=== PATIENT | male | born 1955 | race Caucasian/White ===

== ENCOUNTER → 2017-04-18 | Outpatient (CLI) | payer OTHER ==
[~2017-04-18] MED LIST: CIAL5TAB PO; DOXA1TAB35 PO; IBUP200C PO; IOHEXOL 350 MG/ML 10 ML VIAL (for RAD DIAG) IVCONTRAST ONE
--- NOTE | 2017-04-18 11:34 | RADRPT ---
EXAM DATE/TIME: 04/18/2017 10:04 [facility] COMPARISON: No previous studies available for comparison. INDICATIONS : Prostate cancer IV CONTRAST: 88 cc Omnipaque 350 (iohexol) IV ORAL CONTRAST: Prescribed oral contrast ingested. RADIATION DOSE: 5.98 CTDIvol (mGy) MEDICAL HISTORY : None SURGICAL HISTORY : None. ENCOUNTER: Initial ACUITY: 1 day PAIN SCALE: 0/10 LOCATION: abdomen TECHNIQUE: Volumetric scanning of the abdomen and pelvis was performed. Using automated exposure control and ad justment of the mA and/or kV according to patient size, radiation dose was kept as low as reasonably achievable to obtain optimal diagnostic quality images. DICOM format image data is available electro nically for review and comparison. FINDINGS: LOWER LUNGS: Advanced emphysematous changes identified throughout both lung bases. A 9 mm nodule with faint centra l calcification is identified in the right middle lobe. A 6 mm noncalcified nodule is identified ante riorly in the right middle lobe. Calcified granulomas identified posteriorly in the inferior aspect o f the right upper lobe. LIVER: Homogeneous density without lesion. There is no dilation of the biliary tree. No calcified gallston es. SPLEEN: Normal size without lesion. PANCREAS: Within normal limits. KIDNEYS: Normal in size and shape. There is no mass, stone or hydronephrosis. ADRENAL GLANDS: Within normal limits. VASCULAR: There is no aortic aneurysm. BOWEL/MESENTERY: The stomach, small bowel, and colon demonstrate no acute abnormality. There is no free intraperitone al air or fluid. ABDOMINAL WALL: Within normal limits. RETROPERITONEUM: There is no lymphadenopathy. BLADDER: No wall thickening or mass. REPRODUCTIVE: The prostate is enlarged. Significant BPH is noted. There is no evidence of periprostatic mass or loc al regional lymphadenopathy. INGUINAL: There is no lymphadenopathy or hernia. MUSCULOSKELETAL: Within normal limits for patient age. CONCLUSION: 1. Calcified and noncalcified right lung pulmonary nodules. Ses most characteristic of granulomatous disease. 2. COPD with extensive emphysema. 3. No evidence of periprostatic spread, local regional lymphadenopathy or osseous metastases in this patient with known prostate carcinoma. Corona Nevarez MD on April 18, 2017 at 11:26 Board Certified Radiologist. This report was verified electronically.
--- NOTE | 2017-04-18 13:54 | RADRPT ---
EXAM DATE/TIME: 04/18/2017 12:26 [facility] COMPARISON: CT ABDOMEN & PELVIS W CONTRAST, April 18, 2017, 10:04. PRIOR BONE SCANS: No correlative bone scan available for comparison. INDICATIONS : Prostate cancer. DOSE: 30.1 mCi Tc99m MDP IV MEDICAL HISTORY : Carcinoma, prostate. SURGICAL HISTORY : None. ENCOUNTER: Initial ACUITY: 3 months PAIN SCALE: 0/10 LOCATION: Abdomen. TECHNIQUE: Three hours post intravenous administration of radiotracer, whole body bone scan imaging was performe d. FINDINGS: Blood pool images demonstrate a homogeneous pattern of uptake in the soft tissues. No hyperemic area s are identified. Focal uptake left side S1 normal CT. This could be metastatic bone disease. This could be confirmed by MRI of the pelvis. CONCLUSION: Possible metastatic disease as described above. Rusty Wilks MD FACR on April 18, 2017 at 13:50 Board Certified Radiologist. This report was verified electronically.
== END ==
LOC: HRAD 08:02
PROVIDERS: ATTEND Urology
DX: C61 Malignant neoplasm of prostate (principal)
CPT/HCPCS: 74177; 78306; A9503; Q9967

== ENCOUNTER 2017-06-20 05:58 | Inpatient (IN) | payer OTHER ==
[~2017-06-20] VITALS: Ht 170.2 cm; Wt 72.8 kg
[2017-06-20] VITALS (10 sets, daily range): BP systolic 101–138; BP diastolic 67–82; PULSE 79–87; RESP 19–27; TEMP 98.2–98.5; O2SAT 100
[~2017-06-20 05:58] MED LIST changes: -IOHEXOL 350 MG/ML 10 ML VIAL (for RAD DIAG) IVCONTRAST ONE
[2017-06-20] MEDS ORDERED: CHLORHEXIDINE GLUCONATE 2 % 1 PACK (2 CLOTHS) TOPICAL PRN (06:30)
[2017-06-20] MEDS ORDERED: LACTATED RINGER'S 1000 ML IV PRN (06:30)
[2017-06-20] MEDS ORDERED: POVIDONE IODINE 5% (ANTISEPSIS KIT) 4 APPLICATIONS EACH NARE PRN (06:30)
[2017-06-20] MEDS ORDERED: METOPROLOL TARTRATE 25 MG TAB PO PRN (06:30)
[2017-06-20] MEDS ORDERED: SODIUM CHLORID 0.9% 500 ML IV PRN (06:30)
[2017-06-20] MEDS ORDERED: BUPIVACAINE HCL PF 0.5% 30 ML VIAL ONE ×3 (06:57)
[2017-06-20] MEDS ORDERED: ceFAZolin INJ 1,000 MG VIAL ONE (06:58)
[2017-06-20] MEDS: ceFAZolin 1,000 MG/NS 100 ML IV SCH ×4 (08:44→10:03)
[2017-06-20] MEDS ORDERED: SODIUM BICARBONATE 8.4% INJ 50 MEQ/50 ML SYR ONE (11:35)
[2017-06-20] MEDS ORDERED: PHENYLEPH/NS 1000 MCG/10 ML SYR ONE (11:39)
[2017-06-20] MEDS ORDERED: PHENYLEPHRINE 40 MG in D5W 500 ML IV PRN (11:45)
[2017-06-20 11:50] LABS: HEMATOCRIT 26.7 % (39.0-51.0); HEMOGLOBIN 9.3 GM/DL (13.0-17.0)
[2017-06-20] MEDS ORDERED: VASOPRESSIN 20 UNITS/ML VIAL ONE (11:52)
[2017-06-20] MEDS ORDERED: PHENYLEPHRINE HCL 10 MG/ML VIAL IV ONE (12:00)
[2017-06-20] MEDS ORDERED: PROPOFOL 200 MG/20 ML AMP IV ONE (12:00)
[2017-06-20] MEDS ORDERED: ROCURONIUM INJ 50 MG/5 ML SYRINGE IV PUSH ONE (12:00)
[2017-06-20] MEDS ORDERED: PHENYLEPH/NS 1000 MCG/10 ML SYR IV ONE (12:00)
[2017-06-20] MEDS ORDERED: ePHEDrine/NS 25 MG/5 ML SYRINGE IV ONE (12:00)
[2017-06-20] MEDS ORDERED: LIDOCAINE HCL 1% PF 5 ML SYRINGE OTHER ONE (12:00)
[2017-06-20] MEDS ORDERED: ceFAZolin INJ 1,000 MG VIAL IV ONE (12:00)
[2017-06-20 12:45] LABS: BICARBONATE 23.7 MEQ/L (21.0-32.0); CALCIUM 6.7 MG/DL (8.5-10.1); CREATININE 0.72 MG/DL (0.60-1.30)
[2017-06-20] MEDS ORDERED: PHENYLEPHRINE HCL 10 MG/ML VIAL ONE (12:49)
[2017-06-20 13:06] LABS: CALCIUM-PROTEIN CORRECTED 9.2 MG/DL (8.5-10.1); TOTAL PROTEIN 2.9 GM/DL (6.4-8.2)
[2017-06-20 13:16] LABS: AUTOMATED NEUTROPHIL # 17.3 TH/MM3 (1.8-7.7); BASOPHIL % 0.2 % (0.0-2.0); EOSINOPHIL % 0.2 % (0.0-4.0); HEMATOCRIT 24.8 % (39.0-51.0); HEMOGLOBIN 8.3 GM/DL (13.0-17.0); LYMPH % 5.6 % (9.0-44.0); LYMPHOCYTE # 1.1 TH/MM3 (1.0-4.8); MEAN CORPUSCULAR HEMOGLOBIN 30.6 PG (27.0-34.0); MEAN CORPUSCULAR HGB CONC 33.7 % (32.0-36.0); MEAN PLATELET VOLUME 7.7 FL (7.0-11.0); MONO % 9.1 % (0.0-8.0); MONOCYTE # 1.8 TH/MM3 (0-0.9); NEUT % 84.9 % (16.0-70.0); PLATELET COUNT 130 TH/MM3 (150-450); RED BLOOD COUNT 2.72 MIL/MM3 (4.50-5.90); RED CELL DISTRIBUTION WIDTH 14.7 % (11.6-17.2); WHITE BLOOD COUNT 20.3 TH/MM3 (4.0-11.0)
[2017-06-20 13:26] LABS: INTERNATIONAL NORMALIZED RATIO 1.4 RATIO; PROTHROMBIN TIME - PATIENT 14.5 SEC (9.8-11.6)
--- NOTE | 2017-06-20 14:06 | PD.OP ---
Operative Report Date of Surgery: Jun 20, 2017 Preoperative Diagnosis: [place] 7 prostate cancer Postoperative Diagnosis: Same Procedure: Radical retropubic prostatectomy with bilateral pelvic lymph node dissection Anesthesia: JOCELIN Surgeon: Mina Calvillo Plant Machinist(s): Dr. Rubio Guillaume Resident Surgeon: None Operation and Findings: 62-year-old male presented with findings of [place] 7 prostate cancer. Patient elected to undergo radical retropubic prostatectomy with bilateral pelvic lymph node dissection. Risk and benefits discussed preoperatively and the patient was willing to proceed. Preoperatively was noted the patient only obtain soft erections. Patient was brought to operative identified by myself as Rusty Mai. Placed on the operating room table in the supine position, he was prepped draped in usual sterile fashion, received preprocedure bites of general endotracheal tube anesthesia was administered. SCDs were placed as well as all appropriate padding. A 16 Swedish Banerjee was placed at the beginning of the procedure. 15 blade was used to make the opening incision extending from the umbilicus to the area just above the pubic symphysis. Camper's and Romeo's fascia were then entered. The bladder was identified. The Bookwalter retractor was placed into position. The pelvic lymph node dissection was performed first. The left obturator node packet was identified and using Metzenbaum scissors with multiple clips the lymph node packet was dissected out. The obturator nerve was identified as well as the external iliac vessels. The node dissection was then performed on the right side without difficulty. Both specimens were then sent to pathology for frozen section were found to be negative for disease. The prostatectomy was then performed. The dorsal vein complex was identified and using a 2-0 Vicryl suture the complex was ligated. The dorsal vein complex was then cut using the Bovie cautery. The puboprostatics were then cut using the Metzenbaum scissors on both sides. Using the bladder blade retractor, the bladder was retracted cephalad allowing for more retraction upward on the prostate gland. The Metzenbaum scissors was then used to cut the anterior urethra. Umbilical tape was used to placed under the inferior aspect of the urethra using a right angle clamp. The Banerjee was then cut and brought up from the urethra allowing for cephalad retraction on the prostate. Attention then was directed to the pedicles on both sides. Using a right angle clamp the pedicles were dissected out and suture ligated with 2-0 Vicryl sutures. This was done on both sides of the prostate gland. Once completed then dissection then was performed of the seminal vesicles and vas deferens. Once these structures were then freed from their surrounding attachments, the vas deference was ligated with clips. Bladder neck dissection was then performed using the Metzenbaum scissors at the pubovesical junction. This was performed circumferentially. Care was taken to avoid both ureters. At this time, the bladder neck was from the prostate. Reconstruction of the bladder neck was then performed with tennis racquet suturing as well as white earth formation of the bladder neck. This was done with 4-0 Vicryl suture in interrupted fashion. 4 2-0 Vicryl sutures on a needle were then utilized to place 4 stitches in the area of the bladder neck. A 20 Swedish Banerjee catheter was then inserted into the bladder with 15 cc in the balloon. The sutures were then tightened allowing the bladder to reanastomosed to the bladder neck. Prior to this, a ANA MARIA drain was placed at the area of the bladder neck. Once the anastomosis was completed a #1 loop PDS was used to close the wound. Alfonso were then used to close the skin. The patient tolerated the procedure well and was transferred to the recovery room in stable condition. Mina Calvillo DO Jun 20, 2017 14:06
[2017-06-20] MEDS ORDERED: ACETAMINOPHEN 650 MG/20.3 ML UDC PO PRN (14:15)
[2017-06-20] MEDS ORDERED: diphenhydrAMINE HCL 50 MG/ML VIAL IM PRN (14:15)
[2017-06-20] MEDS ORDERED: ONDANSETRON HCL 4 MG/2 ML VIAL IV PUSH PRN (14:15)
[2017-06-20] MEDS ORDERED: HYDROmorphone HCL PF 1 MG/ML VIAL IV PUSH PRN (14:15)
--- NOTE | 2017-06-20 14:30 | EKG ---
Date Performed: 06/20/2017 Time Performed: 06:48:21 PTAGE: 62 years EKG: Sinus rhythm SEPTAL MYOCARDIAL INFARCTION , PROBABLY OLD ABNORMAL ECG NO PREVIOUS TRACING DOCTOR: Tatum Hilario Interpretating Date/Time 06/20/2017 14:29:06
[2017-06-20] MEDS ORDERED: PROPOFOL 1000 MG/100 ML INJ 100 ML ONE (14:34)
[2017-06-20] MEDS ORDERED: fentaNYL DRIP 250 ML ONE (14:34)
[2017-06-20] MEDS ORDERED: LACTATED RINGER'S 1000 ML INJ 1,000 ML IV SCH (15:00)
[2017-06-20 15:07] LABS: MEAN CELL VOLUME 90.2 FL (80.0-100.0); MEAN CORPUSCULAR HEMOGLOBIN 31.9 PG (27.0-34.0); MEAN CORPUSCULAR HGB CONC 35.4 % (32.0-36.0); PLATELET COUNT 136 TH/MM3 (150-450); RED BLOOD COUNT 3.44 MIL/MM3 (4.50-5.90); RED CELL DISTRIBUTION WIDTH 14.2 % (11.6-17.2); WHITE BLOOD COUNT 22.8 TH/MM3 (4.0-11.0)
[2017-06-20 15:26] LABS: BICARBONATE 24.7 MEQ/L (21.0-32.0); CALCIUM 6.3 MG/DL (8.5-10.1); CREATININE 0.88 MG/DL (0.60-1.30)
[2017-06-20 15:44] LABS: CALCIUM-PROTEIN CORRECTED 8.2 MG/DL (8.5-10.1); TOTAL PROTEIN 3.5 GM/DL (6.4-8.2)
[2017-06-20] MEDS ORDERED: fentaNYL 2,500 MCG/NS 250 ML IV PRN (15:45)
[2017-06-20] MEDS ORDERED: PROPOFOL 1000 MG/100 ML IV PRN (15:45)
[2017-06-20] MEDS ORDERED: DO NOT ADM ANY ANTICOAGULANT DRUGS PRN (16:00)
[2017-06-20] MEDS ORDERED: TERBUTALINE INJ 1 MG/ML AMP SQ PRN (16:15)
[2017-06-20] MEDS: PHENYLEPHRINE 40 MG in D5W 500 ML IV PRN ×3 (16:48→21:26)
--- NOTE | 2017-06-20 17:01 | PD.CONS ---
[facility] Service Critical Care Medicine Consult Requested By Dr. Calvillo Reason for Consult Significant blood loss intraoperatively for radical prostatectomy Anemia requiring transfusion Hypotension/hemorrhagic shock Postoperative acute respiratory failure Hypofibrinogenemia Hypocalcemia Primary Care Physician Herve Koenig DO History of Present Illness 62-year-old male with [place] 7 prostate cancer underwent radical retropubic prostatectomy with bilateral pelvic lymph node dissection by Dr. Calvillo today. Patient had a approximately 4-5 L EBL, received 5 units PRBC 1 unit of platelets and 1 unit of FFP intraoperatively. Also received 8L crystalloid boluses. Was on Kamaljit-Synephrine temporally which was weaned off. Patient was moved to the ICU where I evaluated him. RN had to restart Kamaljit-Synephrine due to hypotension, currently at 200 mcg/min. Stat CBC CMP coags and fibrinogen are pending at this time. Previous fibrinogen was 107 and I have ordered cryoprecipitate. Will transfuse to keep Hb >8.0 Also 2 g of calcium chloride ordered. I have ordered additional 1L NS bolus and change maintenance IV fluid to 150 mL/h normal saline. Discussed with Dr. Calvillo Review of Systems ROS Limitations: Intubated Past Family Social History Allergies: Coded Allergies: No Known Allergies (Unverified Adverse Reaction, Unknown, 06/20/17) Past Medical History Recently diagnosed [place] 7 prostate cancer Nephrolithiasis Erectile dysfunction Past Surgical History Dental surgery Reported Medications Doxazosin 2 mg daily Ibuprofen PRN Active Ordered Medications Reviewed Family History Mother had Parkinson's disease Social History Occasional alcohol use Physical Exam Vital Signs Vital Signs Date Time Temp Pulse Resp B/P (MAP) Pulse Ox O2 Delivery O2 Flow Rate FiO2 06/20/17 16:48 74 70/51 06/20/17 16:14 40 06/20/17 16:11 73 15 96/55 (69) 99 Mechanical Ventilator 40 06/20/17 16:00 74 13 90/52 (65) 99 Mechanical Ventilator 40 06/20/17 15:45 73 15 87/56 (66) 98 Mechanical Ventilator 40 06/20/17 15:30 73 15 86/52 (63) 100 Mechanical Ventilator 40 06/20/17 15:15 83 19 130/74 (92) 100 Mechanical Ventilator 40 06/20/17 15:00 85 20 94/57 (69) 98 Mechanical Ventilator 40 06/20/17 14:45 98 21 117/68 (84) 94 Mechanical Ventilator 40 06/20/17 14:41 88 19 100/58 (72) 93 Mechanical Ventilator 40 06/20/17 14:30 100 40 18 14:27 97.3 94 17 134/81 (98) 98 Mechanical Ventilator 40 06/20/17 14:27 40 06/20/17 06:57 98.6 82 18 127/83 (98) 93 Physical Exam GENERAL: Well-nourished, well-developed patient who is intubated sedated. Hypotensive on Kamaljit-Synephrine SKIN: Warm and dry well perfused HEAD: Atraumatic. Normocephalic. EYES: Pupils equal and round reactive bilaterally. No scleral icterus. No injection or drainage. ENT: No nasal bleeding or discharge. Mucous membranes pink and moist. Orotracheally intubated NECK: Trachea midline. No JVD. CARDIOVASCULAR: Regular rate and rhythm, sinus rhythm on the monitor. No murmurs rubs or gallops appreciated. Currently hypotensive on 200 mcg/min of Kamaljit-Synephrine RESPIRATORY: Air entry equal bilaterally no wheezes or crackles GASTROINTESTINAL: Abdomen soft, distended. Inferior midline incision dressing intact MUSCULOSKELETAL: Extremities without clubbing, cyanosis, or edema. No obvious deformities. : Banerjee with slightly pink urine output NEUROLOGICAL: Patient is intubated sedated but wakes up easily follows commands. No focal deficits Laboratory Laboratory Tests Test 06/20/17 11:27 06/20/17 11:38 06/20/17 12:05 06/20/17 12:59 Hemoglobin 9.3 8.3 Hematocrit 26.7 24.8 Blood Gas Puncture Site ART LINE Blood Gas Patient Temperature 98.6 Blood Gas HCO3 20 Blood Gas Base Excess -5.2 Blood Gas Oxygen Saturation 97 Arterial Blood pH 7.33 Arterial Blood Partial Pressure CO2 39 Arterial Blood Partial Pressure O2 189 Arterial Blood Oxygen Content 12.2 Arterial Blood Carboxyhemoglobin 0.9 Arterial Blood Methemoglobin 1.0 Blood Gas Hemoglobin 8.6 Oxygen Delivery Device VENTILATOR Blood Gas Inspired Oxygen 56 Blood Urea Nitrogen 12 Creatinine 0.72 Random Glucose 180 Total Protein 2.9 Calcium Level 6.7 Sodium Level 142 Potassium Level 4.2 Chloride Level 107 Carbon Dioxide Level 23.7 Anion Gap 11 Estimat Glomerular Filtration Rate 110 Protein Corrected Calcium 9.2 White Blood Count 20.3 Red Blood Count 2.72 Mean Corpuscular Volume 91.0 Mean Corpuscular Hemoglobin 30.6 Mean Corpuscular Hemoglobin Concent 33.7 Red Cell Distribution Width 14.7 Platelet Count 130 Mean Platelet Volume 7.7 Neutrophils (%) (Auto) 84.9 Lymphocytes (%) (Auto) 5.6 Monocytes (%) (Auto) 9.1 Eosinophils (%) (Auto) 0.2 Basophils (%) (Auto) 0.2 Neutrophils # (Auto) 17.3 Lymphocytes # (Auto) 1.1 Monocytes # (Auto) 1.8 Eosinophils # (Auto) 0.0 Basophils # (Auto) 0.0 CBC Comment DIFF FINAL Differential Comment Prothrombin Time 14.5 Prothromb Time International Ratio 1.4 Activated Partial Thromboplast Time 32.6 Fibrinogen 107 Test 06/20/17 14:48 06/20/17 15:10 White Blood Count 22.8 Red Blood Count 3.44 Hemoglobin 11.0 Hematocrit 31.0 Mean Corpuscular Volume 90.2 Mean Corpuscular Hemoglobin 31.9 Mean Corpuscular Hemoglobin Concent 35.4 Red Cell Distribution Width 14.2 Platelet Count 136 Mean Platelet Volume 8.0 Blood Urea Nitrogen 11 Creatinine 0.88 Random Glucose 231 Total Protein 3.5 Calcium Level 6.3 Sodium Level 142 Potassium Level 4.0 Chloride Level 107 Carbon Dioxide Level 24.7 Anion Gap 10 Estimat Glomerular Filtration Rate 87 Protein Corrected Calcium 8.2 Blood Gas Puncture Site ART LINE Blood Gas Patient Temperature 98.6 Blood Gas HCO3 20 Blood Gas Base Excess -5.6 Blood Gas Oxygen Saturation 95 Arterial Blood pH 7.30 Arterial Blood Partial Pressure CO2 42 Arterial Blood Partial Pressure O2 110 Arterial Blood Oxygen Content 13.4 Arterial Blood Carboxyhemoglobin 1.3 Arterial Blood Methemoglobin 1.5 Blood Gas Hemoglobin 9.9 Oxygen Delivery Device VENTILATOR Blood Gas Ventilator Setting AC/16/500/PEEP5 Blood Gas Inspired Oxygen 40 Result Diagram: 06/20/17 1448 06/20/17 1448 Assessment and Plan Assessment and Plan ASSESSMENT: Anemia requiring transfusion Hypotension/hemorrhagic shock Significant blood loss intraoperatively for radical prostatectomy Postoperative acute respiratory failure Hypofibrinogenemia Hypocalcemia [place] 7 prostate cancer PLAN: NEURO: -Propofol and fentanyl for sedation and ventilator synchrony -As needed morphine, for pain RESP: -ACV, ventilator bundle -Leave endotracheally intubated until hemodynamically stable -Start weaning trials hopefully in 24 hours CV/HEME: -Received 5 units PRBC, 1 unit of platelets, 1 unit of FFP in the OR -Received 8 L of crystalloid boluses -Give additional 1 L normal saline bolus -Transfuse PRBC to keep hemoglobin more than 8 -Transfuse 4 units of cryoprecipitate -Normal saline IV fluids 150 ml per hour -Kamaljit-Synephrine at 200 mcg/min -Leukocytosis is most likely stress related GI: -Keep n.p.o., IV famotidine : -Status post radical prostatectomy, postoperative management per Dr. Calvillo -Maintain Banerjee catheter ID: -Leukocytosis is most likely stress related -Perioperative antibiotics per Dr. Calvillo -Monitor closely for infection ENDO: -Electrolyte replacement per protocol -Sliding scale insulin -Replace 2 g of calcium PROPH: -Bilateral lower extremity SCDs/MAAME. Avoid chemical DVT prophylaxis. IV famotidine 20 mg every 12 LINES: -Utilize peripheral IVs, central line if needed CC time 42 min Code Status Full Discussed Condition With Dr. Calvillo and bedside RN Rina Ivy MD Jun 20, 2017 17:01
[2017-06-20] MEDS ORDERED: CALCIUM CHLORIDE INJ 2 GM in DEXTROSE 5% IN WATER 100ML INJ 100 ML IV ONE ×2 (17:15)
[2017-06-20 17:38] LABS: AUTOMATED NEUTROPHIL # 18.3 TH/MM3 (1.8-7.7); BASOPHIL % 0.1 % (0.0-2.0); HEMOGLOBIN 9.5 GM/DL (13.0-17.0); LYMPH % 5.1 % (9.0-44.0); LYMPHOCYTE # 1.1 TH/MM3 (1.0-4.8); MEAN CELL VOLUME 92.8 FL (80.0-100.0); MEAN CORPUSCULAR HEMOGLOBIN 32.6 PG (27.0-34.0); MEAN CORPUSCULAR HGB CONC 35.1 % (32.0-36.0); MEAN PLATELET VOLUME 8.2 FL (7.0-11.0); MONO % 11.3 % (0.0-8.0); MONOCYTE # 2.5 TH/MM3 (0-0.9); NEUT % 83.5 % (16.0-70.0); PLATELET COUNT 126 TH/MM3 (150-450); RED BLOOD COUNT 2.91 MIL/MM3 (4.50-5.90); WHITE BLOOD COUNT 21.9 TH/MM3 (4.0-11.0)
[2017-06-20] MEDS ORDERED: SODIUM BICARBONATE 8.4% INJ 50 MEQ/50 ML SYR IV PUSH ONE (17:45)
[2017-06-20] MEDS ORDERED: PROPOFOL 1000 MG/100 ML INJ 100 ML IV PRN (17:45)
--- NOTE | 2017-06-20 17:53 | RADRPT ---
EXAM DATE/TIME: 06/20/2017 17:29 [facility] COMPARISON: No previous studies available for comparison. INDICATIONS : Respiratory disease. MEDICAL HISTORY : None. SURGICAL HISTORY : None. ENCOUNTER: Subsequent ACUITY: 1 week PAIN SCORE: 0/10 LOCATION: Bilateral chest FINDINGS: There is an endotracheal tube in place which appears to be in good position. There is no evidence of pneumothorax. There is a plate like infiltrate in the right lung base. There is some scattered infilt rates in the left lung base. No definite pleural effusions. Heart size is within normal limits. The b kalee structures are grossly intact. CONCLUSION: 1. There appears to be an ET tube in place in good position. 2. No pneumothorax. 3. Bibasilar infiltrates. Elia Mejia MD on June 20, 2017 at 17:50 Board Certified Radiologist. This report was verified electronically.
[2017-06-20 17:57] LABS: INTERNATIONAL NORMALIZED RATIO 1.2 RATIO
[2017-06-20] MEDS: SODIUM CHLOR 0.9% 1000 ML INJ 1,000 ML IV SCH (18:03)
[2017-06-20] MEDS: FAMOTIDINE 20 MG/2 ML VIAL IV PUSH SCH (18:03)
[2017-06-20] MEDS ORDERED: DEXTROSE 50% IN WATER 50 ML VIAL(D50) IV PUSH PRN (18:15)
[2017-06-20] MEDS ORDERED: GLUCAGON 1 MG/ML VIAL OTHER PRN (18:15)
[2017-06-20 18:22] LABS: ALBUMIN 1.5 GM/DL (3.4-5.0); BICARBONATE 19.2 MEQ/L (21.0-32.0); CALCIUM 6.1 MG/DL (8.5-10.1); CALCIUM-PROTEIN CORRECTED 8.1 MG/DL (8.5-10.1); CREATININE 1.06 MG/DL (0.60-1.30); TOTAL BILIRUBIN ADULT 0.7 MG/DL (0.2-1.0); TOTAL PROTEIN 3.2 GM/DL (6.4-8.2)
[2017-06-20 18:28] LABS: TOXIC GRANULATION 1+ (NORMAL)
[2017-06-20] MEDS: CHLORHEXIDINE 0.12% (ORAL KIT) 15 ML CUP MT SCH (20:33)
[2017-06-20] MEDS: INSULIN ASPART SUPPLEMENTAL SCALE SQ SCH (21:26)
[2017-06-20 22:37] LABS: HEMOGLOBIN A1C 5.3 % (4.3-6.0)
[2017-06-21] VITALS (13 sets, daily range): BP systolic 106–161; BP diastolic 62–88; PULSE 80–110; RESP 12–22; TEMP 98.4–99.6; O2SAT 91–100
[2017-06-21] MEDS: INSULIN ASPART SUPPLEMENTAL SCALE SQ SCH ×6 (01:02→20:00)
[2017-06-21] MEDS: SODIUM CHLOR 0.9% 1000 ML INJ 1,000 ML IV SCH ×3 (01:02→13:01)
[2017-06-21 02:43] LABS: HEMOGLOBIN 10.3 GM/DL (13.0-17.0); MEAN CELL VOLUME 97.9 FL (80.0-100.0); MEAN CORPUSCULAR HEMOGLOBIN 33.7 PG (27.0-34.0); MEAN CORPUSCULAR HGB CONC 34.4 % (32.0-36.0); MEAN PLATELET VOLUME 8.7 FL (7.0-11.0); PLATELET COUNT 132 TH/MM3 (150-450); RED BLOOD COUNT 3.06 MIL/MM3 (4.50-5.90); RED CELL DISTRIBUTION WIDTH 14.5 % (11.6-17.2); WHITE BLOOD COUNT 20.3 TH/MM3 (4.0-11.0)
[2017-06-21 02:50] LABS: BICARBONATE 20.4 MEQ/L (21.0-32.0); CALCIUM 7.5 MG/DL (8.5-10.1); CREATININE 1.24 MG/DL (0.60-1.30)
[2017-06-21] MEDS: FAMOTIDINE 20 MG/2 ML VIAL IV PUSH SCH ×2 (06:25→17:13)
[2017-06-21] MEDS: PHENYLEPHRINE 40 MG in D5W 500 ML IV PRN (06:26)
--- NOTE | 2017-06-21 06:46 | HHI.CCPN ---
Subjective Remarks/Hospital Course 62-year-old male with [place] 7 prostate cancer underwent radical retropubic prostatectomy with bilateral pelvic lymph node dissection by Dr. Calvillo today. Patient had a approximately 4-5 L EBL, received 5 units PRBC 1 unit of platelets and 1 unit of FFP intraoperatively. Also received 8L crystalloid boluses. Was on Kamaljit-Synephrine temporally which was weaned off. Patient was moved to the ICU where I evaluated him. RN had to restart Kamaljit-Synephrine due to hypotension, currently at 200 mcg/min. Stat CBC CMP coags and fibrinogen are pending at this time. Previous fibrinogen was 107 and I have ordered cryoprecipitate. Will transfuse to keep Hb >8.0 Also 2 g of calcium chloride ordered. I have ordered additional 1L NS bolus and change maintenance IV fluid to 150 mL/h normal saline. Discussed with Dr. Calvillo 06/21: Awake alert on the vent. Urine output approximately 450 mL last 12 hours. Patient wakes up easily follows commands. Remains on Kamaljit-Synephrine at 90 mcg /min. hemoglobin remained stable on am labs Objective Vital Signs Date Time Temp Pulse Resp B/P (MAP) Pulse Ox O2 Delivery O2 Flow Rate FiO2 06/21/17 06:26 88 112/69 06/21/17 04:42 100 40 06/21/17 04:00 99.3 16 06/20/17 19:00 Mechanical Ventilator Intake and Output 06/21/17 06/21/17 06/22/17 08:00 16:00 00:00 Intake Total 1600 ml Output Total 830 ml Balance 770 ml Result Diagram: 06/21/17 0125 06/21/17 0125 Other Results Laboratory Tests Test 06/20/17 11:38 06/20/17 15:10 06/20/17 17:16 Blood Gas Puncture Site ART LINE ART LINE ART LINE Blood Gas Patient Temperature 98.6 98.6 98.6 Blood Gas HCO3 20 mmol/L (22-26) 20 mmol/L (22-26) 18 mmol/L (22-26) Blood Gas Base Excess -5.2 mmol/L (-2-2) -5.6 mmol/L (-2-2) -7.1 mmol/L (-2-2) Blood Gas Oxygen Saturation 97 % (90-100) 95 % (90-100) 95 % (90-100) Arterial Blood pH 7.33 (7.380-7.420) 7.30 (7.380-7.420) 7.31 (7.380-7.420) Arterial Blood Partial Pressure CO2 39 mmHg (38-42) 42 mmHg (38-42) 37 mmHg (38-42) Arterial Blood Partial Pressure O2 189 mmHg (61-120) 110 mmHg (61-120) 97 mmHg (61-120) Arterial Blood Oxygen Content 12.2 Vol % (12.0-20.0) 13.4 Vol % (12.0-20.0) 14.1 Vol % (12.0-20.0) Arterial Blood Carboxyhemoglobin 0.9 % (0-4) 1.3 % (0-4) 1.8 % (0-4) Arterial Blood Methemoglobin 1.0 % (0-2) 1.5 % (0-2) 1.0 % (0-2) Blood Gas Hemoglobin 8.6 G/DL (12.0-16.0) 9.9 G/DL (12.0-16.0) 10.5 G/DL (12.0-16.0) Oxygen Delivery Device VENTILATOR VENTILATOR VENTILATOR Blood Gas Inspired Oxygen 56 % 40 % 40 % Blood Gas Ventilator Setting AC/16/500/PEEP5 16/500/PEEP5 Objective Remarks GENERAL: Well-nourished, well-developed patient who is intubated. Hypotensive on Kamaljit-Synephrine SKIN: Warm and dry well perfused HEAD: Atraumatic. Normocephalic. EYES: Pupils equal and round reactive bilaterally. No scleral icterus. No injection or drainage. ENT: No nasal bleeding or discharge. Mucous membranes pink and moist. Orotracheally intubated NECK: Trachea midline. No JVD. CARDIOVASCULAR: Regular rate and rhythm, sinus rhythm on the monitor. No murmurs rubs or gallops appreciated. On 90 mcg/min of Kamaljit-Synephrine RESPIRATORY: Air entry equal bilaterally no wheezes or crackles GASTROINTESTINAL: Abdomen soft, distended. Inferior midline incision dressing intact. ANA MARIA drain with serosanguineous output MUSCULOSKELETAL: Extremities without clubbing, cyanosis, or edema. No obvious deformities. : Banerjee with slightly pink urine output NEUROLOGICAL: Patient is intubated sedated but wakes up easily follows commands. No focal deficits A/P Assessment and Plan ASSESSMENT: Anemia requiring transfusion Hypotension improving Significant blood loss intraoperatively for radical prostatectomy Postoperative acute respiratory failure Hypofibrinogenemia Hypocalcemia [place] 7 prostate cancer PLAN: NEURO: -Propofol and fentanyl for sedation and ventilator synchrony -Hold sedation for SBT -As needed morphine, for pain RESP: -ACV, ventilator bundle -SBT with probable extubation CV/HEME: -Received 5 units PRBC, 1 unit of platelets, 1 unit of FFP in the OR. -s/p 4 units of cryoprecipitate -Received 8 L of crystalloid boluses in OR -DC maintenance IV fluids. IV Lasix 20 mg 1 -Transfuse PRBC to keep hemoglobin more than 8 -Normal saline IV fluids 150 ml per hour-DC today -Kamaljit-Synephrine at 90 mcg/min to keep MAP>65 -Leukocytosis is most likely stress related GI: -Keep n.p.o., IV famotidine : -Status post radical prostatectomy, postoperative management per Dr. Calvillo -Maintain Banerjee catheter ID: -Leukocytosis is most likely stress related -Perioperative antibiotics per Dr. Calvillo -Monitor closely for infection ENDO: -Electrolyte replacement per protocol -Sliding scale insulin PROPH: -Bilateral lower extremity SCDs/MAAME. Avoid chemical DVT prophylaxis due to significant EBL. IV famotidine 20 mg every 12 LINES: -Utilize peripheral IVs, central line if needed Level 3 Rina Ivy MD Jun 21, 2017 06:46
[2017-06-21] MEDS ORDERED: FUROSEMIDE 20 MG/2 ML VIAL IV PUSH ONE (07:30)
[2017-06-21] MEDS: CHLORHEXIDINE 0.12% (ORAL KIT) 15 ML CUP MT SCH ×2 (08:00→20:00)
--- NOTE | 2017-06-21 09:08 | HHI.PR ---
Subjective Patient symptoms today Pt seen and examined. Extubated. Pain controlled. Weening off malina. Objective Vital Signs Vital Signs Date Time Temp Pulse Resp B/P (MAP) Pulse Ox O2 Delivery O2 Flow Rate FiO2 06/21/17 08:30 93 Venturi Mask 6.00 50 06/21/17 08:30 93 Venturi Mask 6 50 06/21/17 06:26 88 112/69 06/21/17 06:00 85 06/21/17 04:42 100 40 06/21/17 04:00 99.3 87 16 116/71 (86) 96 06/21/17 04:00 80 06/21/17 04:00 40 06/21/17 02:08 100 40 06/21/17 02:00 86 06/21/17 00:00 98.8 82 16 106/71 (83) 98 06/21/17 00:00 40 06/21/17 00:00 80 06/20/17 22:00 79 06/20/17 21:26 80 113/66 06/20/17 20:06 100 35 06/20/17 20:00 84 06/20/17 20:00 40 06/20/17 20:00 98.5 84 19 138/67 (90) 100 06/20/17 19:57 100 40 06/20/17 19:00 100 Mechanical Ventilator 40 06/20/17 18:52 98.3 84 20 101/82 100 06/20/17 18:39 98.3 80 27 125/73 100 06/20/17 18:37 98.2 83 24 111/70 100 06/20/17 18:00 87 06/20/17 17:00 82 87/53 06/20/17 16:48 74 70/51 18 16:30 82 06/20/17 16:14 40 18 16:11 73 15 96/55 (69) 99 Mechanical Ventilator 40 06/20/17 16:00 74 13 90/52 (65) 99 Mechanical Ventilator 40 18 15:45 73 15 87/56 (66) 98 Mechanical Ventilator 40 18 15:30 73 15 86/52 (63) 100 Mechanical Ventilator 40 06/20/17 15:15 83 19 130/74 (92) 100 Mechanical Ventilator 40 06/20/17 15:00 85 20 94/57 (69) 98 Mechanical Ventilator 40 06/20/17 14:45 98 21 117/68 (84) 94 Mechanical Ventilator 40 06/20/17 14:41 88 19 100/58 (72) 93 Mechanical Ventilator 40 06/20/17 14:30 100 40 06/20/17 14:27 97.3 94 17 134/81 (98) 98 Mechanical Ventilator 40 06/20/17 14:27 40 Intake & Output 06/21/17 06/21/17 07:00 19:00 Intake Total 2311 ml Output Total 830 ml Balance 1481 ml Intake IV Total 2100 ml Cryoprecipitate 211 ml Output Urine Total 460 ml Drainage Total 370 ml Result Diagram: 06/21/1712406/21/17124 Objective Remarks CV:RRR Lungs: BS bilateral Abd:soft,incisional tenderness Dressing intact ANA MARIA: serous fluid Ext: neg C/C/E Medications and IVs Current Medications Medications (Trade) Dose Ordered Sig/Aimee Route Start Time Stop Time Status Last Admin Sodium Chloride 500 ml @ 30 mls/hr [id number] PRN IV 06/20/17 06:30 06/23/17 06:29 (Lopressor) 25 mg ASSEMBLY LINE DRIVER PRN PO 06/20/17 06:30 06/23/17 06:29 (Betadine 5% Antisepsis Kit) 1 applic ASSEMBLY LINE DRIVER PRN EACH NARE 06/20/17 06:30 06/23/17 06:29 06/20/17 06:49 (Chlorhexidine 2% Cloth) 3 pack [employer]SEMBLY LINE DRIVER PRN TOPICAL 06/20/17 06:30 06/23/17 06:29 06/20/17 06:30 Cefazolin Sodium 1000 mg/Sodium Chloride 100 ml @ 200 mls/hr ASSEMBLY LINE DRIVER IV 06/20/17 06:30 06/23/17 06:29 06/20/17 08:44 Cefazolin Sodium 1000 mg/Sodium Chloride 100 ml @ 200 mls/hr Q8H IV 06/20/17 18:00 06/21/17 10:29 06/21/17 01:02 (Dilaudid Pf Inj) 1 mg Q4H PRN IV PUSH 06/20/17 14:15 (Zofran Inj) 4 mg Q6HR PRN IV PUSH 06/20/17 14:15 (Tylenol 650 Mg/ 20 ml Liq) 650 mg Q6H PRN PO 06/20/17 14:15 (Benadryl Inj) 25 mg Q6H PRN IM 06/20/17 14:15 (Percocet 7.5-325 Mg) 1 tab Q6H PRN PO 06/20/17 14:15 (Morphine Inj) 2 mg Q4H PRN IM 06/20/17 14:15 Fentanyl Citrate 250 ml @ 5 mls/hr TITRATE PRN IV 06/20/17 15:45 06/20/17 18:00 Miscellaneous Information ALL NURSING DEPARTME... UNSCH PRN .XX 06/20/17 16:00 06/21/17 15:59 Phenylephrine HCl 40 mg/Dextrose 500 ml @ 30 mls/hr TITRATE PRN IV 06/20/17 16:15 06/21/17 06:26 (Brethine Inj) 1 mg UNSCH PRN SQ 06/20/17 16:15 (Pepcid Inj) 20 mg Q12H IV PUSH 06/20/17 18:00 06/21/17 06:25 (NovoLOG SUPPLEMENTAL SCALE) 1 Q4HR SQ 06/20/17 20:00 06/21/17 08:59 Sodium Chloride 1,000 ml @ 150 mls/hr Q6H40M IV 06/20/17 18:00 06/21/17 01:02 (Peridex 0.12% Liq) 15 ml BID@08,20 MT 06/20/17 20:00 06/20/17 20:33 Propofol 100 ml @ 2.124 mls/ hr TITRATE PRN IV 06/20/17 17:45 (D50w (Vial) Inj) 50 ml UNSCH PRN IV PUSH 06/20/17 18:15 (Glucagon Inj) 1 mg UNSCH PRN OTHER 06/20/17 18:15 Assessment and Plan Assessment and Plan 62 y.o male s/p RRP OOB to chair Meghan off pressor today Mina Calvillo DO Jun 21, 2017 09:08
--- NOTE | 2017-06-21 09:46 | PQ ---
Physician Query Response Document PATIENT: JACKIE LEMUS : 1955 ADMIT DATE: 06/20/2017 5:58 AM DISCH DATE: RESPONDING PROVIDER #: [email or web address] QUERY TEXT: Anemia Type Anemia is documented in the Medical Record. Please specify the cause (includes suspected or probable cause) Such as: -- Due to acute blood loss -- Due to chronic blood loss -- Due to iron deficiency -- Due to chronic disease -- Other, please specify The patient's Clinical Indicators include: anemia requiring transfusion Per documentation in progress notes significant blood loss intraoperative Query created by: Yamilka Mathias on 06/21/2017 9:33 AM RESPONSE TEXT: Anemia due to acute blood loss, intraoperatively Electronically signed by: Rina Ivy MD 06/21/2017 9:42 AM
[2017-06-21] MEDS: MORPHINE SULFATE 2 MG/ML INJ IM PRN (10:18)
[2017-06-21] MEDS: oxyCODONE/ACETAMINOPHEN 7.5 MG/325 MG TAB PO PRN (22:34)
[2017-06-22] VITALS (12 sets, daily range): BP systolic 101–128; BP diastolic 55–70; PULSE 90–108; RESP 15–28; TEMP 98.6–99.1; O2SAT 90–100
[2017-06-22] MEDS: MORPHINE SULFATE 2 MG/ML INJ IM PRN (01:57)
[2017-06-22] MEDS: oxyCODONE/ACETAMINOPHEN 7.5 MG/325 MG TAB PO PRN ×3 (03:36→19:34)
[2017-06-22] MEDS: INSULIN ASPART SUPPLEMENTAL SCALE SQ SCH ×6 (04:00→21:00)
[2017-06-22 04:45] LABS: HEMATOCRIT 22.8 % (39.0-51.0); HEMOGLOBIN 8.1 GM/DL (13.0-17.0); MEAN CELL VOLUME 94.6 FL (80.0-100.0); MEAN CORPUSCULAR HEMOGLOBIN 33.7 PG (27.0-34.0); MEAN CORPUSCULAR HGB CONC 35.6 % (32.0-36.0); MEAN PLATELET VOLUME 8.6 FL (7.0-11.0); PLATELET COUNT 112 TH/MM3 (150-450); RED BLOOD COUNT 2.41 MIL/MM3 (4.50-5.90); RED CELL DISTRIBUTION WIDTH 13.9 % (11.6-17.2); WHITE BLOOD COUNT 14.5 TH/MM3 (4.0-11.0)
[2017-06-22 05:12] LABS: BICARBONATE 29.6 MEQ/L (21.0-32.0); CALCIUM 7.5 MG/DL (8.5-10.1); CREATININE 0.84 MG/DL (0.60-1.30)
[2017-06-22] MEDS: FAMOTIDINE 20 MG/2 ML VIAL IV PUSH SCH (06:00)
[2017-06-22] MEDS: CHLORHEXIDINE 0.12% (ORAL KIT) 15 ML CUP MT SCH ×2 (07:41→20:00)
--- NOTE | 2017-06-22 09:55 | HHI.PR ---
Subjective Patient symptoms today Pt seen and examined. Feels well. Incisional pain noted. Objective Vital Signs Vital Signs Date Time Temp Pulse Resp B/P (MAP) Pulse Ox O2 Delivery O2 Flow Rate FiO2 06/22/17 08:16 90 Nasal Cannula 6.00 06/22/17 07:00 94 Nasal Cannula 6.00 06/22/17 06:00 90 06/22/17 04:00 98.7 90 16 106/55 (72) 99 06/22/17 04:00 98 06/22/17 02:00 95 06/22/17 00:23 100 Simple Mask 8.00 06/22/17 00:00 96 06/22/17 00:00 98.9 96 15 101/58 (72) 99 06/21/17 22:00 100 06/21/17 20:17 98 Simple Mask 8.00 06/21/17 20:00 103 06/21/17 20:00 98.4 110 20 124/67 (86) 91 06/21/17 19:00 94 Nasal Cannula 6.00 06/21/17 16:00 99.6 100 22 114/78 (90) 06/21/17 16:00 99.6 100 22 114/70 (85) 100 06/21/17 12:00 98 Nasal Cannula 6.00 06/21/17 12:00 99.1 85 22 161/88 (112) 98 Intake & Output 06/22/17 06/22/17 07:00 19:00 Intake Total 420 ml Output Total 2590 ml Balance -2170 ml Intake Oral 420 ml Output Urine Total 2400 ml Emesis 0 ml Drainage Total 190 ml # Bowel Movements 0 Result Diagram: 06/22/17 0401 06/22/17 0401 Objective Remarks CV:RRR Lungs: BS bilateral Abd:soft,incisional tenderness Dressing intact ANA MARIA: serous fluid Ext: neg C/C/E 06/22 Abd:distended, no flatus Wound: clean and dry ANA MARIA: clear fluid Ext: neg C/C/E Medications and IVs Current Medications Medications (Trade) Dose Ordered Sig/Aimee Route Start Time Stop Time Status Last Admin Sodium Chloride 500 ml @ 30 mls/hr [id number] PRN IV 06/20/17 06:30 06/23/17 06:29 (Lopressor) 25 mg [employer]MAIL DEPLOYMENT SPECIALIST PRN PO 06/20/17 06:30 06/23/17 06:29 (Betadine 5% Antisepsis Kit) 1 applic EMAIL DEPLOYMENT SPECIALIST PRN EACH NARE 06/20/17 06:30 06/23/17 06:29 06/20/17 06:49 (Chlorhexidine 2% Cloth) 3 pack EMAIL DEPLOYMENT SPECIALIST PRN TOPICAL 06/20/17 06:30 06/23/17 06:29 06/20/17 06:30 Cefazolin Sodium 1000 mg/Sodium Chloride 100 ml @ 200 mls/hr EMAIL DEPLOYMENT SPECIALIST IV 06/20/17 06:30 06/23/17 06:29 06/20/17 08:44 (Dilaudid Pf Inj) 1 mg Q4H PRN IV PUSH 06/20/17 14:15 (Zofran Inj) 4 mg Q6HR PRN IV PUSH 06/20/17 14:15 (Tylenol 650 Mg/ 20 ml Liq) 650 mg Q6H PRN PO 06/20/17 14:15 (Benadryl Inj) 25 mg Q6H PRN IM 06/20/17 14:15 (Percocet 7.5-325 Mg) 1 tab Q6H PRN PO 06/20/17 14:15 06/22/17 03:36 (Morphine Inj) 2 mg Q4H PRN IM 06/20/17 14:15 06/22/17 01:57 Fentanyl Citrate 250 ml @ 5 mls/hr TITRATE PRN IV 06/20/17 15:45 06/20/17 18:00 Phenylephrine HCl 40 mg/Dextrose 500 ml @ 30 mls/hr TITRATE PRN IV 06/20/17 16:15 06/21/17 06:26 (Brethine Inj) 1 mg UNSCH PRN SQ 06/20/17 16:15 (Pepcid Inj) 20 mg Q12H IV PUSH 06/20/17 18:00 06/22/17 06:00 (NovoLOG SUPPLEMENTAL SCALE) 1 Q4HR SQ 06/20/17 20:00 06/21/17 08:59 (Peridex 0.12% Liq) 15 ml BID@08,20 MT 06/20/17 20:00 06/20/17 20:33 Propofol 100 ml @ 2.124 mls/ hr TITRATE PRN IV 06/20/17 17:45 (D50w (Vial) Inj) 50 ml UNSCH PRN IV PUSH 06/20/17 18:15 (Glucagon Inj) 1 mg UNSCH PRN OTHER 06/20/17 18:15 Assessment and Plan Assessment and Plan 62 y.o male s/p RRP OOB to chair Ween off pressor today 06/22 62 y.o male s/p RRP OOB to chair Pain control Mina Calvillo DO Jun 22, 2017 09:55
[2017-06-22] MEDS ORDERED: POTASSIUM CHLORIDE 10 MEQ CONTROLLED RELEASE TAB PO ONE (16:30)
[2017-06-22] MEDS ORDERED: FUROSEMIDE 40 MG/4 ML VIAL IV PUSH ONE (16:30)
[2017-06-22] MEDS ORDERED: RESP: ALBUTEROL 2.5 MG/3 ML NEB (PRN) NEB (16:30)
--- NOTE | 2017-06-22 16:31 | HHI.CCPN ---
Subjective Remarks/Hospital Course 62-year-old male with [place] 7 prostate cancer underwent radical retropubic prostatectomy with bilateral pelvic lymph node dissection by Dr. Calvillo today. Patient had a approximately 4-5 L EBL, received 5 units PRBC 1 unit of platelets and 1 unit of FFP intraoperatively. Also received 8L crystalloid boluses. Was on Kamaljit-Synephrine temporally which was weaned off. Patient was moved to the ICU where I evaluated him. RN had to restart Kamaljit-Synephrine due to hypotension, currently at 200 mcg/min. Stat CBC CMP coags and fibrinogen are pending at this time. Previous fibrinogen was 107 and I have ordered cryoprecipitate. Will transfuse to keep Hb >8.0 Also 2 g of calcium chloride ordered. I have ordered additional 1L NS bolus and change maintenance IV fluid to 150 mL/h normal saline. Discussed with Dr. Calvillo 06/21: Awake alert on the vent. Urine output approximately 450 mL last 12 hours. Patient wakes up easily follows commands. Remains on Kamaljit-Synephrine at 90 mcg /min. hemoglobin remained stable on am labs Subjective 06/22: It appears to be no longer be actively bleeding. Off all vasopressors. Increased oxygen requirement will check chest x-ray and diuresis with furosemide 40 mg IV 1. Still about 1.5 L positive since admission. Objective Vital Signs Date Time Temp Pulse Resp B/P (MAP) Pulse Ox O2 Delivery O2 Flow Rate FiO2 06/22/17 16:10 99 Simple Mask 6.00 06/22/17 12:00 98.8 99 18 128/70 (89) 06/21/17 08:30 50 Intake and Output 06/22/17 06/22/17 06/23/17 08:00 16:00 00:00 Intake Total 420 ml Output Total 2590 ml Balance -2170 ml Result Diagram: 06/22/17 0401 06/22/17 0401 Imaging Last Impressions Chest X-Ray 06/20/17 0000 Signed Impressions: Service Date/Time: Tuesday, June 20, 2017 17:29 - CONCLUSION: 1. There appears to be an ET tube in place in good position. 2. No pneumothorax. 3. Bibasilar infiltrates. Elia Mejia MD Objective Remarks GENERAL: 62-year-old male currently on simple mask in mild respiratory distress SKIN: Warm and dry well perfused HEAD: Atraumatic. Normocephalic. EYES: Pupils equal and round reactive bilaterally. No scleral icterus. No injection or drainage. ENT: No nasal bleeding or discharge. Mucous membranes pink and moist. Orotracheally intubated NECK: Trachea midline. No JVD. CARDIOVASCULAR: RRR. S1, S2 no S4 without murmurs RESPIRATORY: Few faint crackles appreciated bilateral lower lobes. No wheezing GASTROINTESTINAL: Abdomen soft, distended. Inferior midline incision dressing intact. ANA MARIA drain with serosanguineous output -265 cc past 24 hours MUSCULOSKELETAL: Extremities with trace lower extremity edema. : Banerjee with slightly pink urine output. No scrotal edema NEUROLOGICAL: cranial nerves II through XII grossly intact. Strength is subjectively equal and symmetric bilaterally. Normal sensation. Urinary Catheter: Yes Assessment to: Continue Banerjee insert reason: Prolonged Immobilization Vascular Central Line Catheter: No Assessment to: Continue A/P Assessment and Plan NEURO/PSYCH: Oxycodone/acetaminophen 7.5/325 one tablet every 6 hours as needed pain 1-5 Hydromorphone 1 mg IV every 4 hours. Pain 6-10 RESP: Acute respiratory insufficiency Currently in simple mask to maintain saturations greater or equal 92% Incentives parameter while awake Check chest x-ray stat Acapella every 6 hours Albuterol/ipratropium aerosols every 6 hours with albuterol aerosols every 2 hours as needed dyspnea Diuresis furosemide 40 mg IV 1 now CV/HEME: Leukocytosis Normocytic anemia Thrombocytopenia -Received 5 units PRBC, 1 unit of platelets, 1 unit of FFP in the OR. -s/p 4 units of cryoprecipitate -Received 8 L of crystalloid boluses in OR -DC maintenance IV fluids. I furosemide 40 mg IV 1 now -Transfuse PRBC to keep hemoglobin more than 8 IV fluids discontinued -Leukocytosis is most likely stress related GI: Regular diet Famotidine 20 mg twice daily for GI prophylaxis Docusate sodium/senna 1 tablet twice daily for bowel regimen : [place] 7 prostate cancer Status post robot-assisted radical prostatectomy with bilateral pelvic lymph node dissection postoperative management per Dr. Calvillo -Maintain Banerjee catheter Holding doxazosin 4 mg p.o. daily. Resume when clinically indicated ID: -Perioperative antibiotics per Dr. Calvillo -Monitor closely for infection ENDO: -Electrolyte replacement per protocol -Sliding scale insulin PROPH: -Bilateral lower extremity SCDs/MAAME. Avoid chemical DVT prophylaxis due to significant EBL. famotidine 20 mg every 12 LINES: -Utilize peripheral IVs, central line if needed Level 2 follow-up Murali Reyes MD Jun 22, 2017 16:31
--- NOTE | 2017-06-22 17:01 | RADRPT ---
EXAM DATE/TIME: 06/22/2017 16:36 [facility] COMPARISON: CHEST SINGLE AP, June 20, 2017, 17:29. INDICATIONS : Shortness of breath. Respiratory disease. MEDICAL HISTORY : Carcinoma, prostatic. Smoker. SURGICAL HISTORY : Prostatectomy. ENCOUNTER: Subsequent ACUITY: 1 week PAIN SCORE: 0/10 LOCATION: Bilateral chest FINDINGS: The heart is mildly enlarged. The exam demonstrates diffuse chronic appearing interstitial changes wi thin the parenchyma. There are atelectatic changes in both lung bases. The appearance of the parenchy ma similar to the previous study dated 06/20/17. The patient has been extubated since prior exam. CONCLUSION: 1. COPD changes. Stable post extubation film. Torrey Wilks MD on June 22, 2017 at 16:58 Board Certified Radiologist. This report was verified electronically.
[2017-06-22] MEDS: RESP: ALBUTEROL 2.5 MG/IPRATROPIUM 0.5 MG NEB (SCH) NEB (19:55)
[2017-06-23] VITALS (17 sets, daily range): BP systolic 101–140; BP diastolic 59–73; PULSE 84–108; RESP 12–26; TEMP 98.3–98.8; O2SAT 88–100
[2017-06-23] MEDS: RESP: ALBUTEROL 2.5 MG/IPRATROPIUM 0.5 MG NEB (SCH) NEB ×4 (03:28→21:16)
[2017-06-23 04:50] LABS: AUTOMATED NEUTROPHIL # 8.9 TH/MM3 (1.8-7.7); BASOPHIL % 0.2 % (0.0-2.0); EOSINOPHIL # 0.2 TH/MM3 (0-0.4); EOSINOPHIL % 1.6 % (0.0-4.0); HEMATOCRIT 21.9 % (39.0-51.0); HEMOGLOBIN 7.7 GM/DL (13.0-17.0); LYMPH % 15.7 % (9.0-44.0); MEAN CELL VOLUME 96.4 FL (80.0-100.0); MEAN CORPUSCULAR HEMOGLOBIN 34.2 PG (27.0-34.0); MEAN CORPUSCULAR HGB CONC 35.4 % (32.0-36.0); MEAN PLATELET VOLUME 8.3 FL (7.0-11.0); MONO % 11.1 % (0.0-8.0); MONOCYTE # 1.4 TH/MM3 (0-0.9); NEUT % 71.4 % (16.0-70.0); PLATELET COUNT 145 TH/MM3 (150-450); RED BLOOD COUNT 2.27 MIL/MM3 (4.50-5.90); WHITE BLOOD COUNT 12.5 TH/MM3 (4.0-11.0)
[2017-06-23 05:21] LABS: BICARBONATE 31.1 MEQ/L (21.0-32.0); CALCIUM 8.2 MG/DL (8.5-10.1); CREATININE 0.75 MG/DL (0.60-1.30); MAGNESIUM 2.4 MG/DL (1.5-2.5); PHOSPHORUS 2.5 MG/DL (2.5-4.9)
[2017-06-23] MEDS: oxyCODONE/ACETAMINOPHEN 7.5 MG/325 MG TAB PO PRN ×3 (06:20→22:20)
[2017-06-23] MEDS ORDERED: FUROSEMIDE 20 MG/2 ML VIAL IV PUSH ONE (07:00)
[2017-06-23] MEDS ORDERED: ALBUMIN 25% INJ 100 ML IV ONE (07:00)
[2017-06-23] MEDS: CHLORHEXIDINE 0.12% (ORAL KIT) 15 ML CUP MT SCH ×2 (07:50→20:00)
[2017-06-23] MEDS: POTASSIUM CHLORIDE 10 MEQ CONTROLLED RELEASE TAB PO SCH ×2 (07:52→11:12)
[2017-06-23] MEDS: POTASSIUM CHLOR 20 MEQ PREMIX 100 ML IV SCH ×2 (08:00→09:53)
[2017-06-23] MEDS: INSULIN ASPART SUPPLEMENTAL SCALE SQ SCH (08:00)
--- NOTE | 2017-06-23 08:06 | HHI.PR ---
Subjective Patient symptoms today Pt seen and examined. Feels well. Incisional pain noted. Hgb 7.7 Objective Vital Signs Vital Signs Date Time Temp Pulse Resp B/P (MAP) Pulse Ox O2 Delivery O2 Flow Rate FiO2 06/23/17 06:00 98 06/23/17 04:00 98.5 96 25 124/68 (86) 88 06/23/17 04:00 108 06/23/17 02:00 90 06/23/17 00:00 98.6 92 16 112/63 (79) 92 06/23/17 00:00 90 06/22/17 22:00 94 06/22/17 20:00 101 06/22/17 20:00 94 Nasal Cannula 6.00 06/22/17 20:00 99.1 100 17 117/63 (81) 95 06/22/17 19:00 93 Nasal Cannula 6.00 06/22/17 16:10 99 Simple Mask 6.00 06/22/17 16:00 98.6 108 28 125/63 (83) 91 06/22/17 12:00 98.8 99 18 128/70 (89) 93 06/22/17 08:16 90 Nasal Cannula 6.00 Intake & Output 06/23/17 06/23/17 07:00 19:00 Intake Total 400 ml Output Total 2610 ml Balance -2210 ml Intake Oral 400 ml Output Urine Total 2500 ml Stool Total 0 ml Emesis 0 ml Drainage Total 110 ml Result Diagram: 06/23/1735106/23/17 035 Objective Remarks CV:RRR Lungs: BS bilateral Abd:soft,incisional tenderness Dressing intact ANA MARIA: serous fluid Ext: neg C/C/E 06/22 Abd:distended, no flatus Wound: clean and dry ANA MARIA: clear fluid Ext: neg C/C/E 06/23 Abd:soft,nt,nd Banerjee: urine clear ANA MARIA 130cc clear Ext: neg Wound C&D Medications and IVs Current Medications Medications (Trade) Dose Ordered Sig/Aimee Route Start Time Stop Time Status Last Admin (Dilaudid Pf Inj) 1 mg Q4H PRN IV PUSH 06/20/17 14:15 (Zofran Inj) 4 mg Q6HR PRN IV PUSH 06/20/17 14:15 (Tylenol 650 Mg/ 20 ml Liq) 650 mg Q6H PRN PO 06/20/17 14:15 (Benadryl Inj) 25 mg Q6H PRN IM 06/20/17 14:15 (Percocet 7.5-325 Mg) 1 tab Q6H PRN PO 06/20/17 14:15 06/23/17 06:20 Fentanyl Citrate 250 ml @ 5 mls/hr TITRATE PRN IV 06/20/17 15:45 06/20/17 18:00 (Peridex 0.12% Liq) 15 ml BID@08,20 MT 06/20/17 20:00 06/20/17 20:33 (D50w (Vial) Inj) 50 ml UNSCH PRN IV PUSH 06/20/17 18:15 (Glucagon Inj) 1 mg UNSCH PRN OTHER 06/20/17 18:15 (NovoLOG SUPPLEMENTAL SCALE) 1 ACHS SQ 06/22/17 17:00 (Duoneb Neb) 1 ampule Q6HR NEB NEB 06/22/17 22:00 06/23/17 03:28 (Albuterol Neb) 2.5 mg Q2HR NEB PRN NEB 06/22/17 16:30 Albumin Human 100 ml @ 60 mls/hr ONCE ONCE IV 06/23/17 07:00 06/23/17 08:39 06/23/17 07:51 (KCl) 30 meq Q12HR PO 06/23/17 09:00 06/23/17 21:01 06/23/17 07:52 (Cardura) 1 mg DAILY PO 06/23/17 09:00 (Symbicort 160-4.5 Mcg Inh) 1 puff Q12HR INH 06/23/17 09:00 Potassium Chloride 100 ml @ 50 mls/hr Q2H IV 06/23/17 08:00 06/23/17 11:59 Assessment and Plan Assessment and Plan 62 y.o male s/p RRP OOB to chair Ween off pressor today 06/22 62 y.o male s/p RRP OOB to chair Pain control 06/23 Stable s/p RRP POD#3 OOB/Ambulate Transfuse 1 unit PRBC's today Replace Edilma+ Mina Calvillo DO Jun 23, 2017 08:06
[2017-06-23] MEDS: BUDESONIDE-FORMOTEROL 160/4.5 MCG INHALER INH SCH ×2 (09:00→21:00)
[2017-06-23] MEDS: DOXAZOSIN MESYLATE 1 MG TAB PO SCH (09:00)
--- NOTE | 2017-06-23 10:59 | HHI.CCPN ---
Subjective Remarks/Hospital Course 62-year-old male with [place] 7 prostate cancer underwent radical retropubic prostatectomy with bilateral pelvic lymph node dissection by Dr. Calvillo today. Patient had a approximately 4-5 L EBL, received 5 units PRBC 1 unit of platelets and 1 unit of FFP intraoperatively. Also received 8L crystalloid boluses. Was on Kamaljit-Synephrine temporally which was weaned off. Patient was moved to the ICU where I evaluated him. RN had to restart Kamaljit-Synephrine due to hypotension, currently at 200 mcg/min. Stat CBC CMP coags and fibrinogen are pending at this time. Previous fibrinogen was 107 and I have ordered cryoprecipitate. Will transfuse to keep Hb >8.0 Also 2 g of calcium chloride ordered. I have ordered additional 1L NS bolus and change maintenance IV fluid to 150 mL/h normal saline. Discussed with Dr. Calvillo 06/21: Awake alert on the vent. Urine output approximately 450 mL last 12 hours. Patient wakes up easily follows commands. Remains on Kamaljit-Synephrine at 90 mcg /min. hemoglobin remained stable on am labs 06/22: It appears to be no longer be actively bleeding. Off all vasopressors. Increased oxygen requirement will check chest x-ray and diuresis with furosemide 40 mg IV 1. Still about 1.5 L positive since admission. Subjective 06/23: Resting in bed on 6 L nasal cannula. Receiving albumin and furosemide attempt to diurese. Lungs RESPIRATORY quit smoking 15 years ago. Increasing pulmonary toilet. See orders. Dr. Calvillo request remains in ICU until tomorrow status post blood transfusion Objective Vital Signs Date Time Temp Pulse Resp B/P (MAP) Pulse Ox O2 Delivery O2 Flow Rate FiO2 06/23/17 10:00 106 06/23/17 09:41 98 Nasal Cannula 2.00 06/23/17 08:00 98.7 26 140/73 (95) 06/21/17 08:30 50 Intake and Output 06/23/17 06/23/17 06/24/17 08:00 16:00 00:00 Intake Total 400 ml Output Total 2610 ml Balance -2210 ml Result Diagram: 06/23/17 0352 06/23/17 0352 Imaging Last Impressions Chest X-Ray 06/22/17 0000 Signed Impressions: Service Date/Time: June 16:36 - CONCLUSION: 1. COPD changes. Stable post extubation film. Torrey Wilks MD Objective Remarks GENERAL: 62-year-old male currently on nasal cannula in no acute distress SKIN: Warm and dry well perfused HEAD: Atraumatic. Normocephalic. EYES: Pupils equal and round reactive bilaterally. No scleral icterus. No injection or drainage. ENT: No nasal bleeding or discharge. Mucous membranes pink and moist. Orotracheally intubated NECK: Trachea midline. No JVD. CARDIOVASCULAR: RRR. S1, S2 no S4 without murmurs RESPIRATORY: Few faint crackles appreciated bilateral lower lobes. No wheezing GASTROINTESTINAL: Abdomen soft, distended. Inferior midline incision dressing intact. ANA MARIA drain with serosanguineous output -185 cc past 24 hours MUSCULOSKELETAL: Extremities with trace lower extremity edema. : Banerjee with slightly pink urine output. No scrotal edema NEUROLOGICAL: cranial nerves II through XII grossly intact. Strength is subjectively equal and symmetric bilaterally. Normal sensation. Urinary Catheter: Yes Assessment to: Continue Banerjee insert reason: Prolonged Immobilization Vascular Central Line Catheter: No Assessment to: Continue A/P Assessment and Plan NEURO/PSYCH: Oxycodone/acetaminophen 7.5/325 one tablet every 6 hours as needed pain 1-5 Hydromorphone 1 mg IV every 4 hours. Pain 6-10 RESP: Acute respiratory insufficiency Currently in simple mask/nasal cannula at 6 L to maintain saturations greater or equal 92% Incentive spirometry while awake 06/22 chest x-ray revealed no pulmonary effusion or infiltrates reported dyslipidemia. Emphysematous type changes. Acapella every 6 hours Albuterol/ipratropium aerosols every 6 hours with albuterol aerosols every 2 hours as needed dyspnea Diuresis furosemide 20 mg IV 1 now after albumin 25 g 50 cc 1 CV/HEME: Leukocytosis Normocytic anemia Thrombocytopenia -Received 5 units PRBC, 1 unit of platelets, 1 unit of FFP in the OR. -s/p 4 units of cryoprecipitate Urology transfuse 1 unit PRBCs today 06/23. -Received 8 L of crystalloid boluses in OR -DC maintenance IV fluids. I furosemide 40 mg IV 1 now -Transfuse PRBC to keep hemoglobin more than 8 IV fluids discontinued -Leukocytosis is most likely stress related GI: Regular diet Famotidine 20 mg twice daily for GI prophylaxis Docusate sodium/senna 1 tablet twice daily for bowel regimen : [place] 7 prostate cancer Status post robot-assisted radical prostatectomy with bilateral pelvic lymph node dissection postoperative management per Dr. Calvillo -Maintain Banerjee catheter Holding doxazosin 4 mg p.o. daily. Resume when clinically indicated Started on doxazosin 1 mg po daily. ID: -Perioperative antibiotics per Dr. Calvillo or discontinued 06/22 including cefazolin -Monitor closely for infection FEN/ENDO: Hypopotassemia -Electrolyte replacement per protocol. 30 mg twice a day KCl. Recheck in a.m. -Sliding scale insulin PROPH: -Bilateral lower extremity SCDs/MAAME. Avoid chemical DVT prophylaxis due to significant EBL. famotidine 20 mg every 12 LINES: -Utilize peripheral IVs, central line if needed Level 2 follow-up Murali Reyes MD Jun 23, 2017 10:59
[2017-06-23] MEDS ORDERED: POLYETHYLENE GLYCOL 17 GM PKG PO ONE (11:15)
[2017-06-23] MEDS: DOCUSATE SODIUM 100 MG CAP PO SCH (20:36)
[2017-06-23] MEDS: SENNOSIDES 8.6 MG TAB PO SCH (20:37)
[2017-06-23] MEDS ORDERED: POTASSIUM CHLORIDE 20 MEQ CONTROLLED RELEASE TAB PO ONE (21:00)
[2017-06-24] VITALS (15 sets, daily range): BP systolic 99–152; BP diastolic 60–79; PULSE 78–103; RESP 13–31; TEMP 98.3–99.9; O2SAT 92–98
[2017-06-24] MEDS: RESP: ALBUTEROL 2.5 MG/IPRATROPIUM 0.5 MG NEB (SCH) NEB ×4 (03:48→19:36)
[2017-06-24] MEDS: oxyCODONE/ACETAMINOPHEN 7.5 MG/325 MG TAB PO PRN ×4 (04:23→21:57)
--- NOTE | 2017-06-24 05:53 | RADRPT ---
EXAM DATE/TIME: 06/24/2017 03:33 [facility] COMPARISON: CHEST SINGLE AP, June 22, 2017, 16:36. INDICATIONS : Respiratory failure. MEDICAL HISTORY : Carcinoma, prostatic. Smoker. SURGICAL HISTORY : Prostatectomy. ENCOUNTER: Subsequent ACUITY: 4 - 6 days PAIN SCORE: 0/10 LOCATION: Bilateral chest FINDINGS: A single view of the chest demonstrates basilar airspace consolidation. No significant effusion. No p neumothorax. Emphysema in the upper lungs. CONCLUSION: 1. Slight worsening of basilar lung consolidation since June 22. Grant Minor MD on June 24, 2017 at 5:50 Board Certified Radiologist. This report was verified electronically.
[2017-06-24 06:02] LABS: AUTOMATED NEUTROPHIL # 6.4 TH/MM3 (1.8-7.7); BASOPHIL % 0.3 % (0.0-2.0); EOSINOPHIL # 0.3 TH/MM3 (0-0.4); EOSINOPHIL % 3.4 % (0.0-4.0); HEMATOCRIT 23.7 % (39.0-51.0); HEMOGLOBIN 8.5 GM/DL (13.0-17.0); LYMPH % 15.5 % (9.0-44.0); LYMPHOCYTE # 1.5 TH/MM3 (1.0-4.8); MEAN CELL VOLUME 94.5 FL (80.0-100.0); MEAN PLATELET VOLUME 8.4 FL (7.0-11.0); MONO % 13.9 % (0.0-8.0); MONOCYTE # 1.3 TH/MM3 (0-0.9); NEUT % 66.9 % (16.0-70.0); PLATELET COUNT 195 TH/MM3 (150-450); RED BLOOD COUNT 2.51 MIL/MM3 (4.50-5.90); RED CELL DISTRIBUTION WIDTH 14.2 % (11.6-17.2); WHITE BLOOD COUNT 9.6 TH/MM3 (4.0-11.0)
[2017-06-24 06:20] LABS: BICARBONATE 30.9 MEQ/L (21.0-32.0); CREATININE 0.72 MG/DL (0.60-1.30); MAGNESIUM 2.4 MG/DL (1.5-2.5); PHOSPHORUS 3.2 MG/DL (2.5-4.9)
[2017-06-24] MEDS: CHLORHEXIDINE 0.12% (ORAL KIT) 15 ML CUP MT SCH ×2 (07:49→20:00)
[2017-06-24] MEDS: DOCUSATE SODIUM 100 MG CAP PO SCH ×2 (08:26→21:56)
[2017-06-24] MEDS: BUDESONIDE-FORMOTEROL 160/4.5 MCG INHALER INH SCH ×2 (08:26→21:57)
[2017-06-24] MEDS: SENNOSIDES 8.6 MG TAB PO SCH ×2 (08:26→21:56)
[2017-06-24] MEDS: DOXAZOSIN MESYLATE 1 MG TAB PO SCH (09:00)
--- NOTE | 2017-06-24 11:29 | HHI.CCPN ---
Subjective Remarks/Hospital Course 62-year-old male with [place] 7 prostate cancer underwent radical retropubic prostatectomy with bilateral pelvic lymph node dissection by Dr. Calvillo today. Patient had a approximately 4-5 L EBL, received 5 units PRBC 1 unit of platelets and 1 unit of FFP intraoperatively. Also received 8L crystalloid boluses. Was on Kamaljit-Synephrine temporally which was weaned off. Patient was moved to the ICU where I evaluated him. RN had to restart Kamaljit-Synephrine due to hypotension, currently at 200 mcg/min. Stat CBC CMP coags and fibrinogen are pending at this time. Previous fibrinogen was 107 and I have ordered cryoprecipitate. Will transfuse to keep Hb >8.0 Also 2 g of calcium chloride ordered. I have ordered additional 1L NS bolus and change maintenance IV fluid to 150 mL/h normal saline. Discussed with Dr. Calvillo 06/21: Awake alert on the vent. Urine output approximately 450 mL last 12 hours. Patient wakes up easily follows commands. Remains on Kamaljit-Synephrine at 90 mcg /min. hemoglobin remained stable on am labs 06/22: It appears to be no longer be actively bleeding. Off all vasopressors. Increased oxygen requirement will check chest x-ray and diuresis with furosemide 40 mg IV 1. Still about 1.5 L positive since admission. 06/23: Resting in bed on 6 L nasal cannula. Receiving albumin and furosemide attempt to diurese. Lungs RESPIRATORY quit smoking 15 years ago. Increasing pulmonary toilet. See orders. Dr. Calvillo request remains in ICU until tomorrow status post blood transfusion Subjective 06/24: Afebrile. Currently on 4 L nasal cannula. Complaining of "heartburn". He states this is like his regular heartburn that he normally takes Prilosec for at home.. Denies chest pain, shortness of breath. Also complaining of teeth sensitivity. No gum sensitivities. No dysphagia. No obvious signs of abscess. Visualization of his 6 remaining teeth within normal limits Objective Vital Signs Date Time Temp Pulse Resp B/P (MAP) Pulse Ox O2 Delivery O2 Flow Rate FiO2 06/24/17 10:32 96 Nasal Cannula 5.00 06/24/17 09:00 96 31 125/60 (81) 06/24/17 08:00 98.4 06/21/17 08:30 50 Intake and Output 06/24/17 06/24/17 06/25/17 08:00 16:00 00:00 Intake Total 500 ml Output Total 2580 ml Balance -2080 ml Result Diagram: 06/24/1751906/24/17 05 Imaging Last Impressions Chest X-Ray 06/24/17 0600 Signed Impressions: Service Date/Time: Saturday, June 24, 2017 03:33 - CONCLUSION: 1. Slight worsening of basilar lung consolidation since June 22. Grant Minor MD Objective Remarks GENERAL: 62-year-old male currently on nasal cannula in no acute distress SKIN: Warm and dry well perfused HEAD: Atraumatic. Normocephalic. EYES: Pupils equal and round reactive bilaterally. No scleral icterus. No injection or drainage. ENT: No nasal bleeding or discharge. Mucous membranes pink and moist. Orotracheally intubated NECK: Trachea midline. No JVD. CARDIOVASCULAR: RRR. S1, S2 no S4 without murmurs RESPIRATORY: Few faint crackles appreciated bilateral lower lobes. No wheezing GASTROINTESTINAL: Abdomen soft, distended. Inferior midline incision dressing intact. ANA MARIA drain with serosanguineous output -185 cc past 24 hours MUSCULOSKELETAL: Extremities with trace lower extremity edema. : Banerjee with slightly pink urine output. No scrotal edema NEUROLOGICAL: cranial nerves II through XII grossly intact. Strength is subjectively equal and symmetric bilaterally. Normal sensation. Urinary Catheter: Yes Assessment to: Continue Banerjee insert reason: ICU Pt Getting Diuretics Vascular Central Line Catheter: No Assessment to: Continue A/P Assessment and Plan NEURO/PSYCH: Acetaminophen 650 mg p.o. every 6 hours as needed fever Oxycodone/acetaminophen 7.5/325 one tablet every 6 hours as needed pain 1-5 Hydromorphone 1 mg IV every 4 hours. Pain 6-10 RESP: Acute respiratory insufficiency Currently in simple mask/nasal cannula at 6 L to maintain saturations greater or equal 92% Incentive spirometry while awake 06/22 chest x-ray revealed no pulmonary effusion or infiltrates reported dyslipidemia. Emphysematous type changes. Acapella every 6 hours Albuterol/ipratropium aerosols every 6 hours with albuterol aerosols every 2 hours as needed dyspnea Diuresis furosemide 20 mg IV 1 now CV/HEME: Normocytic anemia -Received 5 units PRBC, 1 unit of platelets, 1 unit of FFP in the OR. -s/p 4 units of cryoprecipitate Urology transfuse 1 unit PRBCs 06/23. Currently 8.5 -Received 8 L of crystalloid boluses in OR -Transfuse PRBC to keep hemoglobin more than 8 IV fluids discontinued -Leukocytosis was most likely stress related GI: Hypoalbuminemia Regular diet Protonix 40 mg daily for GI prophylaxis Maalox 30 cc every 6 hours as needed breakthrough heartburn Docusate sodium/senna 1 tablet twice daily for bowel regimen : [place] 7 prostate cancer Status post robot-assisted radical prostatectomy with bilateral pelvic lymph node dissection postoperative management per Dr. Calvillo -Maintain Banerjee catheter Holding doxazosin 4 mg p.o. daily. Resume when clinically indicated Started on doxazosin 1 mg po daily. 330 cc from ANA MARIA. Creatinine sent off to see if source urine versus peritoneal/ ascites ID: -Perioperative antibiotics per Dr. Calvillo discontinued 06/22 including cefazolin -Monitor closely for infection FEN/ENDO: Hypopotassemia -Electrolyte replacement per protocol. 30 mEq 1 now. Recheck in a.m. -Sliding scale insulin PROPH: -Bilateral lower extremity SCDs/MAAME. Avoid chemical DVT prophylaxis due to significant EBL. Pantoprazole 40 mg p.o. daily LINES: -Utilize peripheral IVs, central line if needed Level 2 follow-up. Patient stable from critical care medicine standpoint. Transfer to hospitalist in a.m. 06/25/17. Transfer from ICU okayed with Dr. Calvillo. Murali Reyes MD Jun 24, 2017 11:29
[2017-06-24] MEDS ORDERED: ALUMINUM/MAGNESIUM/SIMETH 30 ML CUP PO PRN (11:30)
[2017-06-24] MEDS ORDERED: PANTOPRAZOLE SOD 40 MG DELAYED RELEASE TAB PO ONE (11:30)
--- NOTE | 2017-06-24 11:44 | HHI.PR ---
Subjective Patient symptoms today Pt seen and examined. O2 sats low 90's on 3L. CXR with some consolidation. Objective Vital Signs Vital Signs Date Time Temp Pulse Resp B/P (MAP) Pulse Ox O2 Delivery O2 Flow Rate FiO2 06/24/17 10:32 96 Nasal Cannula 5.00 06/24/17 09:00 96 31 125/60 (81) 94 06/24/17 08:00 82 06/24/17 08:00 98.4 82 17 152/76 (101) 95 06/24/17 07:00 80 13 101/65 (77) 92 06/24/17 07:00 92 Nasal Cannula 5.00 06/24/17 06:00 78 06/24/17 04:00 78 06/24/17 04:00 98.3 78 20 130/66 (87) 98 06/24/17 02:00 86 06/24/17 00:00 86 06/24/17 00:00 98.3 86 15 99/60 (73) 96 06/23/17 22:00 98 06/23/17 21:19 93 Nasal Cannula 5.00 06/23/17 20:00 98.5 104 26 116/60 (78) 94 06/23/17 20:00 107 06/23/17 19:00 86 Nasal Cannula 4.00 06/23/17 18:11 98.5 92 17 115/64 100 06/23/17 18:00 84 06/23/17 16:52 98.3 93 20 124/61 92 06/23/17 16:37 98.3 100 20 101/62 90 06/23/17 16:00 98.8 86 12 119/59 (79) 95 06/23/17 16:00 88 06/23/17 14:00 103 06/23/17 12:00 98.5 99 23 119/59 (79) 96 06/23/17 12:00 102 Intake & Output 06/24/17 06/24/17 06:59 18:59 Intake Total 500 ml Output Total 2580 ml Balance -2080 ml Intake Oral 500 ml Output Urine Total 2400 ml Drainage Total 180 ml Result Diagram: 06/24/1720 06/24/17 0520 Imaging Last 24 hours Impressions Chest X-Ray 06/24/17 0600 Signed Impressions: Service Date/Time: Saturday, June 24, 2017 03:33 - CONCLUSION: 1. Slight worsening of basilar lung consolidation since June 22. Grant Minor MD Objective Remarks CV:RRR Lungs: BS bilateral Abd:soft,incisional tenderness Dressing intact ANA MARIA: serous fluid Ext: neg C/C/E 06/22 Abd:distended, no flatus Wound: clean and dry ANA MARIA: clear fluid Ext: neg C/C/E 06/23 Abd:soft,nt,nd Banerjee: urine clear ANA MARIA 130cc clear Ext: neg Wound C&D 06/24 Abd:soft,slight distension, passing flatus Banerjee: clear urine ANA MARIA: urine vs peritoneal fluid Wound: clean and dry Ext: neg C/C/E Medications and IVs Current Medications Medications (Trade) Dose Ordered Sig/Aimee Route Start Time Stop Time Status Last Admin (Dilaudid Pf Inj) 1 mg Q4H PRN IV PUSH 06/20/17 14:15 (Zofran Inj) 4 mg Q6HR PRN IV PUSH 06/20/17 14:15 (Tylenol 650 Mg/ 20 ml Liq) 650 mg Q6H PRN PO 06/20/17 14:15 (Benadryl Inj) 25 mg Q6H PRN IM 06/20/17 14:15 (Percocet 7.5-325 Mg) 1 tab Q6H PRN PO 06/20/17 14:15 06/24/17 11:07 (Peridex 0.12% Liq) 15 ml BID@08,20 MT 06/20/17 20:00 06/20/17 20:33 (D50w (Vial) Inj) 50 ml UNSCH PRN IV PUSH 06/20/17 18:15 (Glucagon Inj) 1 mg UNSCH PRN OTHER 06/20/17 18:15 (Duoneb Neb) 1 ampule Q6HR NEB NEB 06/22/17 22:00 06/24/17 10:32 (Albuterol Neb) 2.5 mg Q2HR NEB PRN NEB 06/22/17 16:30 (Cardura) 1 mg DAILY PO 06/23/17 09:00 06/24/17 09:00 (Symbicort 160-4.5 Mcg Inh) 1 puff Q12HR INH 06/23/17 09:00 06/24/17 08:26 (Colace) 100 mg BID PO 06/23/17 21:00 06/24/17 08:26 (Senokot) 8.6 mg Q12HR PO 06/23/17 21:00 06/24/17 08:26 (Protonix) 40 mg DAILY PO 06/25/17 09:00 (Mag-Al Plus Susp Liq) 30 ml Q6H PRN PO 06/24/17 11:30 Assessment and Plan Assessment and Plan 62 y.o male s/p RRP OOB to chair Ween off pressor today 06/22 62 y.o male s/p RRP OOB to chair Pain control 06/23 Stable s/p RRP POD#3 OOB/Ambulate Transfuse 1 unit PRBC's today Replace K+ 06/24 Stable s/p RRP POD#4 OOB to chair ANA MARIA fluid for creatinine Mina Calvillo DO Jun 24, 2017 11:44
[2017-06-24] MEDS ORDERED: FUROSEMIDE 20 MG/2 ML VIAL IV PUSH ONE (12:00)
[2017-06-24] MEDS ORDERED: POTASSIUM CHLORIDE 10 MEQ CONTROLLED RELEASE TAB PO ONE (12:00)
[2017-06-24] MEDS ORDERED: LACTULOSE SYRUP 20 GM/30 ML CUP PO ONE (12:30)
[2017-06-24] MEDS ORDERED: POLYETHYLENE GLYCOL 17 GM PKG PO ONE (12:30)
[2017-06-25] VITALS: BP 111/66; PULSE 93; RESP 16; TEMP 96.3; O2SAT 93
[2017-06-25] MEDS: RESP: ALBUTEROL 2.5 MG/IPRATROPIUM 0.5 MG NEB (SCH) NEB ×4 (03:48→21:59)
[2017-06-25] MEDS: oxyCODONE/ACETAMINOPHEN 7.5 MG/325 MG TAB PO PRN ×3 (06:16→23:47)
--- NOTE | 2017-06-25 06:33 | RADRPT ---
EXAM DATE/TIME: 06/25/2017 06:15 [facility] COMPARISON: CHEST SINGLE AP, June 24, 2017, 3:33. INDICATIONS : Short of breath. MEDICAL HISTORY : None. SURGICAL HISTORY : None. ENCOUNTER: Initial ACUITY: 2 days PAIN SCORE: 6/10 LOCATION: Bilateral chest FINDINGS: A single view of the chest demonstrates bilateral basilar consolidation. No significant effusion. No pneumothorax. Heart size mildly enlarged. CONCLUSION: 1. Basilar airspace disease without significant effusion. Findings stable to slightly improved from F ebruary 10. No pneumothorax. Grant Minor MD on June 25, 2017 at 6:29 Board Certified Radiologist. This report was verified electronically.
[2017-06-25 07:28] LABS: HEMATOCRIT 26.1 % (39.0-51.0); HEMOGLOBIN 9.1 GM/DL (13.0-17.0); MEAN CELL VOLUME 94.7 FL (80.0-100.0); MEAN CORPUSCULAR HEMOGLOBIN 32.9 PG (27.0-34.0); MEAN CORPUSCULAR HGB CONC 34.7 % (32.0-36.0); MEAN PLATELET VOLUME 8.3 FL (7.0-11.0); PLATELET COUNT 255 TH/MM3 (150-450); RED BLOOD COUNT 2.76 MIL/MM3 (4.50-5.90); RED CELL DISTRIBUTION WIDTH 13.8 % (11.6-17.2); WHITE BLOOD COUNT 8.8 TH/MM3 (4.0-11.0)
[2017-06-25 07:54] LABS: BICARBONATE 30.5 MEQ/L (21.0-32.0); CREATININE 0.73 MG/DL (0.60-1.30)
[2017-06-25 08:00] VITALS: BP 129/77; PULSE 91; RESP 18; TEMP 98.2; O2SAT 92
[2017-06-25] MEDS: CHLORHEXIDINE 0.12% (ORAL KIT) 15 ML CUP MT SCH ×2 (08:00→20:00)
[2017-06-25] MEDS: PANTOPRAZOLE SOD 40 MG DELAYED RELEASE TAB PO SCH (08:58)
[2017-06-25] MEDS: DOXAZOSIN MESYLATE 1 MG TAB PO SCH (08:58)
[2017-06-25] MEDS: POLYETHYLENE GLYCOL 17 GM PKG PO SCH (08:58)
[2017-06-25] MEDS: DOCUSATE SODIUM 100 MG CAP PO SCH ×2 (08:58→20:25)
[2017-06-25] MEDS: SENNOSIDES 8.6 MG TAB PO SCH ×2 (08:58→20:25)
[2017-06-25] MEDS: BUDESONIDE-FORMOTEROL 160/4.5 MCG INHALER INH SCH ×2 (08:58→20:26)
--- NOTE | 2017-06-25 10:59 | HHI.PR ---
Subjective Patient symptoms today Pt seen and examined. Some SOB with ambulation. No BM. ANA MARIA still with alot of output. Objective Vital Signs Vital Signs Date Time Temp Pulse Resp B/P (MAP) Pulse Ox O2 Delivery O2 Flow Rate FiO2 06/25/17 08:00 98.2 91 18 129/77 (94) 92 06/25/17 00:00 96.3 93 16 111/66 (81) 93 06/24/17 20:15 Nasal Cannula 4.00 06/24/17 20:00 99.0 103 18 116/62 (80) 92 06/24/17 19:37 95 Nasal Cannula 4.00 06/24/17 17:00 99.9 102 16 122/72 (89) 93 06/24/17 16:00 98.6 102 28 122/79 (93) 95 06/24/17 12:18 21 06/24/17 12:00 82 06/24/17 12:00 98.5 88 21 151/75 (100) 95 06/24/17 11:00 90 21 150/72 (98) 94 Intake & Output 06/25/17 06/25/17 07:00 19:00 Intake Total 360 ml Output Total 1010 ml 210 ml Balance -650 ml -210 ml Intake Oral 360 ml Output Urine Total 800 ml Drainage Total 210 ml 210 ml # Bowel Movements 0 Result Diagram: 06/25/17 0557 06/25/17 0557 Imaging Last 24 hours Impressions Chest X-Ray 06/25/17 0600 Signed Impressions: Service Date/Time: Sunday, June 25, 2017 06:15 - CONCLUSION: 1. Basilar airspace disease without significant effusion. Findings stable to slightly improved from June 24. No pneumothorax. Grant Minor MD Objective Remarks CV:RRR Lungs: BS bilateral Abd:soft,incisional tenderness Dressing intact ANA MARIA: serous fluid Ext: neg C/C/E 06/22 Abd:distended, no flatus Wound: clean and dry ANA MARIA: clear fluid Ext: neg C/C/E 06/23 Abd:soft,nt,nd Banerjee: urine clear ANA MARIA 130cc clear Ext: neg Wound C&D 06/24 Abd:soft,slight distension, passing flatus Banerjee: clear urine ANA MARIA: urine vs peritoneal fluid Wound: clean and dry Ext: neg C/C/E 06/25 Abd:soft,distended, slight tenderness ANA MARIA with clear fluid vs urine Banerjee: clear Ext: neg C/C/E Medications and IVs Current Medications Medications (Trade) Dose Ordered Sig/Aimee Route Start Time Stop Time Status Last Admin (Dilaudid Pf Inj) 1 mg Q4H PRN IV PUSH 06/20/17 14:15 (Zofran Inj) 4 mg Q6HR PRN IV PUSH 06/20/17 14:15 (Tylenol 650 Mg/ 20 ml Liq) 650 mg Q6H PRN PO 06/20/17 14:15 (Benadryl Inj) 25 mg Q6H PRN IM 06/20/17 14:15 (Percocet 7.5-325 Mg) 1 tab Q6H PRN PO 06/20/17 14:15 06/25/17 06:16 (Peridex 0.12% Liq) 15 ml BID@08,20 MT 06/20/17 20:00 06/20/17 20:33 (D50w (Vial) Inj) 50 ml UNSCH PRN IV PUSH 06/20/17 18:15 (Glucagon Inj) 1 mg UNSCH PRN OTHER 06/20/17 18:15 (Duoneb Neb) 1 ampule Q6HR NEB NEB 06/22/17 22:00 06/25/17 03:48 (Albuterol Neb) 2.5 mg Q2HR NEB PRN NEB 06/22/17 16:30 (Cardura) 1 mg DAILY PO 06/23/17 09:00 06/25/17 08:58 (Symbicort 160-4.5 Mcg Inh) 1 puff Q12HR INH 06/23/17 09:00 06/25/17 08:58 (Colace) 100 mg BID PO 06/23/17 21:00 06/25/17 08:58 (Senokot) 8.6 mg Q12HR PO 06/23/17 21:00 06/25/17 08:58 (Protonix) 40 mg DAILY PO 06/25/17 09:00 06/25/17 08:58 (Mag-Al Plus Susp Liq) 30 ml Q6H PRN PO 06/24/17 11:30 06/24/17 11:50 (Miralax) 17 gm DAILY PO 06/25/17 09:00 06/25/17 08:58 Assessment and Plan Assessment and Plan 62 y.o male s/p RRP OOB to chair Ween off pressor today 06/22 62 y.o male s/p RRP OOB to chair Pain control 06/23 Stable s/p RRP POD#3 OOB/Ambulate Transfuse 1 unit PRBC's today Replace K+ 2 Stable s/p RRP POD#4 OOB to chair ANA MARIA fluid for creatinine 06/25 Stable s/p RRP POD#5 PT evaluation ANA MARIA for creatinine Dulcolux suppository Mina Calvillo DO Jun 25, 2017 10:59
[2017-06-25] MEDS ORDERED: BISACODYL 10 MG SUPP RECTAL ONE (11:00)
[2017-06-25 12:00] VITALS: BP 132/73; PULSE 94; RESP 17; TEMP 99; O2SAT 97
--- NOTE | 2017-06-25 14:48 | HHI.PR ---
Subjective Remarks 62M who underwent prostatectomy on 06/20/17 has graduated from ICU and is on a medical floor now. He says he feels well, pain is controlled. He understands that coleman catheter will be in place at home. He is eating a regular diet. Has not had a bowel movement recently. Objective Vitals Vital Signs Date Time Temp Pulse Resp B/P (MAP) Pulse Ox O2 Delivery O2 Flow Rate FiO2 06/25/17 12:00 99.0 94 17 132/73 (92) 97 06/25/17 08:00 98.2 91 18 129/77 (94) 92 06/25/17 00:00 96.3 93 16 111/66 (81) 93 06/24/17 20:15 Nasal Cannula 4.00 06/24/17 20:00 99.0 103 18 116/62 (80) 92 06/24/17 19:37 95 Nasal Cannula 4.00 06/24/17 17:00 99.9 102 16 122/72 (89) 93 06/24/17 16:00 98.6 102 28 122/79 (93) 95 I/O 06/24/17 06/24/17 06/24/17 06/25/17 06/25/17 06/25/17 07:00 15:00 23:00 07:00 15:00 23:00 Intake Total 500 ml 350 ml 250 ml 360 ml Output Total 2580 ml 1310 ml 935 ml 1010 ml 210 ml Balance -2080 ml -960 ml -685 ml -650 ml -210 ml Intake Oral 500 ml 350 ml 250 ml 360 ml Output Urine Total 2400 ml 980 ml 825 ml 800 ml Stool Total 0 ml Drainage Total 180 ml 330 ml 110 ml 210 ml 210 ml # Bowel Movements 0 0 Result Diagram: 06/25/17 0557 06/25/17 0557 Objective Remarks GENERAL: Well-nourished, well-developed patient. SKIN: Warm and dry. HEAD: Normocephalic. EYES: No scleral icterus. No injection or drainage. NECK: Supple, trachea midline. No JVD or lymphadenopathy. CARDIOVASCULAR: Regular rate and rhythm without murmurs, gallops, or rubs. RESPIRATORY: Breath sounds equal bilaterally. No accessory muscle use. GASTROINTESTINAL: Abdomen soft, non-tender, nondistended, a little bloated ( full of stool) EXTREMITIES: No cyanosis, or edema. NEUROLOGICAL: Awake, alert, and oriented x 3. Non-focal. A/P Problem List: (1) Prostate cancer ICD Code: C61 - Malignant neoplasm of prostate Assessment and Plan Prostate CA s/p Prostatectomy Surgery performed on 06/20/17 Doing well post op, comfortable, eating Coleman in place, will remain so for at least a month Urology following Constipation Discussed value of a BM prior to discharge He will try out various stool softeners ordered DVT Prophylaxis SCD due to surgery and hematuria risk Zak Montalvo MD Jun 25, 2017 14:48
[2017-06-25 16:00] VITALS: BP 115/72; PULSE 102; RESP 18; TEMP 97.7; O2SAT 92
[2017-06-25 20:50] VITALS: BP 127/67; PULSE 104; RESP 20; TEMP 99.2; O2SAT 90
[2017-06-25 22:00] VITALS: O2SAT 90
[2017-06-26] VITALS (7 sets, daily range): BP systolic 103–128; BP diastolic 59–72; PULSE 83–110; RESP 20–22; TEMP 96.7–99.8; O2SAT 78–95
[2017-06-26] MEDS: RESP: ALBUTEROL 2.5 MG/IPRATROPIUM 0.5 MG NEB (SCH) NEB ×4 (04:00→20:56)
[2017-06-26] MEDS: CHLORHEXIDINE 0.12% (ORAL KIT) 15 ML CUP MT SCH ×2 (08:00→19:26)
--- NOTE | 2017-06-26 08:30 | HHI.PR ---
Subjective Patient symptoms today Pt seen and examined. Creatinine body fluid was 32.61/51.77 c/w urine. ANA MARIA output 500cc. Pt with leak at anastomosis. Will leave ANA MARIA in place. Pt had BM. Feels better. Objective Vital Signs Vital Signs Date Time Temp Pulse Resp B/P (MAP) Pulse Ox O2 Delivery O2 Flow Rate FiO2 06/26/17 00:58 98.0 94 20 119/65 (83) 90 06/25/17 22:00 90 Nasal Cannula 3.00 06/25/17 20:50 99.2 104 20 127/67 (87) 90 06/25/17 20:00 Nasal Cannula 3.00 06/25/17 16:00 97.7 102 18 115/72 (86) 92 06/25/17 15:19 Nasal Cannula 2.00 06/25/17 12:06 Nasal Cannula 3.00 06/25/17 12:00 99.0 94 17 132/73 (92) 97 06/25/17 11:00 Nasal Cannula 3.00 Intake & Output 06/26/17 06/26/17 07:00 19:00 Intake Total 480 ml Output Total 1960 ml Balance -1480 ml Intake Oral 480 ml Output Urine Total 1650 ml Drainage Total 310 ml Result Diagram: 06/25/17 0557 06/25/17 0557 Objective Remarks CV:RRR Lungs: BS bilateral Abd:soft,incisional tenderness Dressing intact ANA MARIA: serous fluid Ext: neg C/C/E 06/22 Abd:distended, no flatus Wound: clean and dry ANA MARIA: clear fluid Ext: neg C/C/E 06/23 Abd:soft,nt,nd Banerjee: urine clear ANA MARIA 130cc clear Ext: neg Wound C&D 06/24 Abd:soft,slight distension, passing flatus Banerjee: clear urine ANA MARIA: urine vs peritoneal fluid Wound: clean and dry Ext: neg C/C/E 06/25 Abd:soft,distended, slight tenderness ANA MARIA with clear fluid vs urine Banerjee: clear Ext: neg C/C/E 06/26 Abd:soft,nt,nd Wound: clean and dry ANA MARIA: urine Banerjee: clear Medications and IVs Current Medications Medications (Trade) Dose Ordered Sig/Aimee Route Start Time Stop Time Status Last Admin (Dilaudid Pf Inj) 1 mg Q4H PRN IV PUSH 06/20/17 14:15 (Zofran Inj) 4 mg Q6HR PRN IV PUSH 06/20/17 14:15 (Tylenol 650 Mg/ 20 ml Liq) 650 mg Q6H PRN PO 06/20/17 14:15 (Benadryl Inj) 25 mg Q6H PRN IM 06/20/17 14:15 (Percocet 7.5-325 Mg) 1 tab Q6H PRN PO 06/20/17 14:15 06/25/17 23:47 (Peridex 0.12% Liq) 15 ml BID@08,20 MT 06/20/17 20:00 06/20/17 20:33 (D50w (Vial) Inj) 50 ml UNSCH PRN IV PUSH 06/20/17 18:15 (Glucagon Inj) 1 mg UNSCH PRN OTHER 06/20/17 18:15 (Duoneb Neb) 1 ampule Q6HR NEB NEB 06/22/17 22:00 06/25/17 21:59 (Albuterol Neb) 2.5 mg Q2HR NEB PRN NEB 06/22/17 16:30 (Cardura) 1 mg DAILY PO 06/23/17 09:00 06/25/17 08:58 (Symbicort 160-4.5 Mcg Inh) 1 puff Q12HR INH 06/23/17 09:00 06/25/17 20:26 (Colace) 100 mg BID PO 06/23/17 21:00 06/25/17 20:25 (Senokot) 8.6 mg Q12HR PO 06/23/17 21:00 06/25/17 20:25 (Protonix) 40 mg DAILY PO 06/25/17 09:00 06/25/17 08:58 (Mag-Al Plus Susp Liq) 30 ml Q6H PRN PO 06/24/17 11:30 06/24/17 11:50 (Miralax) 17 gm DAILY PO 06/25/17 09:00 06/25/17 08:58 Assessment and Plan Assessment and Plan 62 y.o male s/p RRP OOB to chair Ween off pressor today 06/22 62 y.o male s/p RRP OOB to chair Pain control 06/23 Stable s/p RRP POD#3 OOB/Ambulate Transfuse 1 unit PRBC's today Replace K+ 2 Stable s/p RRP POD#4 OOB to chair ANA MARIA fluid for creatinine 2 Stable s/p RRP POD#5 PT evaluation ANA MARIA for creatinine Dulcolux suppository 06/26 Stable s/p RRP POD#6 D/C home Mina Calvillo DO Jun 26, 2017 08:30
[2017-06-26] MEDS ORDERED: BACT800T5 PO (08:48)
[2017-06-26] MEDS ORDERED: COLA100C5 PO (08:48)
[2017-06-26] MEDS ORDERED: PERC7.5T13 PO (08:48)
[2017-06-26] MEDS: POLYETHYLENE GLYCOL 17 GM PKG PO SCH (09:00)
[2017-06-26] MEDS: SENNOSIDES 8.6 MG TAB PO SCH ×2 (09:00→21:00)
[2017-06-26] MEDS: DOXAZOSIN MESYLATE 1 MG TAB PO SCH (09:29)
[2017-06-26] MEDS: PANTOPRAZOLE SOD 40 MG DELAYED RELEASE TAB PO SCH (09:29)
[2017-06-26] MEDS: BUDESONIDE-FORMOTEROL 160/4.5 MCG INHALER INH SCH ×2 (09:29→21:14)
[2017-06-26] MEDS: DOCUSATE SODIUM 100 MG CAP PO SCH ×2 (09:29→21:00)
[2017-06-26] MEDS: oxyCODONE/ACETAMINOPHEN 7.5 MG/325 MG TAB PO PRN ×3 (09:35→23:03)
--- NOTE | 2017-06-26 11:09 | RADRPT ---
EXAM DATE/TIME: 06/26/2017 10:54 [facility] COMPARISON: No previous studies available for comparison. INDICATIONS : Short of breath. MEDICAL HISTORY : Carcinoma, prostatic. SURGICAL HISTORY : prostate removed ENCOUNTER: Initial ACUITY: 4 - 6 days PAIN SCORE: 0/10 LOCATION: Bilateral chest FINDINGS: Minimal bibasilar parenchymal changes worse on the right. Left lung clear. The heart and pulmonary v ascularity are normal. Degenerative changes of both shoulders. CONCLUSION: Minimal peripheral changes right base. Rusty Wilks MD FACR on June 26, 2017 at 11:06 Board Certified Radiologist. This report was verified electronically.
--- NOTE | 2017-06-26 14:46 | HHI.PR ---
Subjective Remarks 62M s/p prostatectomy. He was cleared by urology this morning but failed the oxygen walk test, and had resting oxygen as low as 76% on room air. At home he rides his bike regularly, so this is out of the norm for him. Objective Vitals Vital Signs Date Time Temp Pulse Resp B/P (MAP) Pulse Ox O2 Delivery O2 Flow Rate FiO2 06/26/17 12:00 96.7 110 20 119/72 (88) 91 06/26/17 09:55 Nasal Cannula 3.00 06/26/17 09:40 3.00 06/26/17 08:51 78 06/26/17 08:00 98.6 83 20 128/71 (90) 92 06/26/17 00:58 98.0 94 20 119/65 (83) 90 06/25/17 22:00 90 Nasal Cannula 3.00 06/25/17 20:50 99.2 104 20 127/67 (87) 90 06/25/17 20:00 Nasal Cannula 3.00 06/25/17 16:00 97.7 102 18 115/72 (86) 92 06/25/17 15:19 Nasal Cannula 2.00 I/O 06/25/17 06/25/17 06/25/17 06/26/17 06/26/17 06/26/17 07:00 15:00 23:00 07:00 15:00 23:00 Intake Total 360 ml 840 ml 480 ml Output Total 1010 ml 210 ml 900 ml 1960 ml Balance -650 ml -210 ml -60 ml -1480 ml Intake Oral 360 ml 840 ml 480 ml Output Urine Total 800 ml 900 ml 1650 ml Drainage Total 210 ml 210 ml 310 ml # Bowel Movements 0 1 Result Diagram: 06/25/17 0557 06/25/17 0557 Objective Remarks GENERAL: Well-nourished, well-developed patient. SKIN: Warm and dry. HEAD: Normocephalic. EYES: No scleral icterus. No injection or drainage. NECK: Supple, trachea midline. No JVD or lymphadenopathy. CARDIOVASCULAR: Regular rate and rhythm without murmurs, gallops, or rubs. RESPIRATORY: Breath sounds equal bilaterally. No accessory muscle use. GASTROINTESTINAL: Abdomen soft, non-tender, nondistended EXTREMITIES: No cyanosis, or edema. NEUROLOGICAL: Awake, alert, and oriented x 3. Non-focal. A/P Problem List: (1) Prostate cancer ICD Code: C61 - Malignant neoplasm of prostate Assessment and Plan Prostate CA s/p Prostatectomy Surgery performed on 06/20/17 Doing well post op, comfortable, eating Banerjee in place, will remain so for at least a month Urology following Hypoxemia Oxygen down to 76% on room air, denies chest pain or marked dyspnea D-Dimer was elevated to 4.[address] Thorax w/ contrast to rule out pulmonary embolism Bilateral US of LE's to rule out DVT Routine CXR was normal this morning Constipation Discussed value of a BM prior to discharge He will try out various stool softeners ordered DVT Prophylaxis SCD due to surgery and hematuria risk Discharge planning Discharge may be delayed until the a.m. to rule out DVT or PE. If tests are normal he can go home on oxygen and follow up with his PCP. Zak Montalvo MD Jun 26, 2017 14:46
--- NOTE | 2017-06-26 16:15 | RADRPT ---
EXAM DATE/TIME: 06/26/2017 15:34 [facility] COMPARISON: No previous studies available for comparison. INDICATIONS : Hypoexmia. High D-Dimer. MEDICAL HISTORY : Renal calculi. Tinnitus. Vertigo. GERD. Impotence. Mumps. SURGICAL HISTORY : Prostatectomy. Blood transfusions. ENCOUNTER: Initial ACUITY: 2 day PAIN SCORE: 1/10 LOCATION: Bilateral leg. TECHNIQUE: Venous ultrasound of the left and right leg was performed from the inguinal ligament to the proximal calf. Real-time, color Doppler and spectral tracing, compression and augmentation techniques were us ed. FINDINGS: RIGHT LEG: There is normal compressibility of the deep venous system from the inguinal region to the proximal ca lf. No echogenic clot is seen in the lumen of the common femoral, femoral, popliteal, and posterior tibial veins. There is a normal response of the venous system to proximal and distal augmentation an d respiration. LEFT LEG: There is normal compressibility of the deep venous system from the inguinal region to the proximal ca lf. No echogenic clot is seen in the lumen of the common femoral, femoral, popliteal, and posterior tibial veins. There is a normal response of the venous system to proximal and distal augmentation an d respiration. 5.3 cm left popliteal cyst CONCLUSION: 1. Negative for deep venous thrombosis. 2. 3. 5.3 cm left popliteal cyst Rusty Wilks MD FACR on June 26, 2017 at 16: 4. 11 Board Certified Radiologist. This report was verified electronically.
[2017-06-26] MEDS ORDERED: IOHEXOL 350 MG/ML 10 ML VIAL (for RAD DIAG) IVCONTRAST ONE (19:09)
--- NOTE | 2017-06-26 19:20 | RADRPT ---
EXAM DATE/TIME: 06/26/2017 18:42 [place] COMPARISON: No previous studies available for comparison. INDICATIONS : Hypoxia after surgery IV CONTRAST: 50 cc Omnipaque 350 (iohexol) IV RADIATION DOSE: 12.58 CTDIvol (mGy) MEDICAL HISTORY : Carcinoma, prostate. Renal calculi. SURGICAL HISTORY : Prostatectomy. ENCOUNTER: Initial ACUITY: 1 day PAIN SCALE: 0/10 LOCATION: chest TECHNIQUE: Volumetric scanning of the chest was performed using a pulmonary embolism protocol MIP images were re constructed. Using automated exposure control and adjustment of the mA and/or kV according to patien t size, radiation dose was kept as low as reasonably achievable to obtain optimal diagnostic quality images. DICOM format image data is available electronically for review and comparison. Follow-up recommendations for detected pulmonary nodules are based at a minimum on nodule size and pa tient risk factors according to Fleischner Society Guidelines. FINDINGS: No filling defects identified to suggest pulmonary embolic disease. Small bilateral pleural effusions . There is basilar dependent atelectasis and some consolidation. There is centrilobular and bullous e mphysema. Calcified nodule present in right lower lobe. Partially calcified nodule in the right middle lobe as well as to noncalcified approximately 4 mm nodules in the right middle lobe. Mild coronary calcifications. No acute findings in the upper abdomen. CONCLUSION: 1. Negative for pulmonary embolus. 2. Moderate to severe emphysema. 3. Dependent atelectasis and mild consolidation at the bases with small pleural effusions. Grant Minor MD on June 26, 2017 at 19:15 Board Certified Radiologist. This report was verified electronically.
[2017-06-27] VITALS: BP 111/65; PULSE 96; RESP 22; TEMP 99; O2SAT 96
[2017-06-27] MEDS: oxyCODONE/ACETAMINOPHEN 7.5 MG/325 MG TAB PO PRN ×2 (05:55→12:05)
[2017-06-27 08:00] VITALS: BP 110/69; PULSE 82; RESP 19; TEMP 97.7; O2SAT 94
[2017-06-27] MEDS: CHLORHEXIDINE 0.12% (ORAL KIT) 15 ML CUP MT SCH (08:00)
[2017-06-27] MEDS: POLYETHYLENE GLYCOL 17 GM PKG PO SCH (08:31)
[2017-06-27] MEDS: SENNOSIDES 8.6 MG TAB PO SCH (08:31)
[2017-06-27] MEDS: DOCUSATE SODIUM 100 MG CAP PO SCH (08:31)
[2017-06-27] MEDS ORDERED: OXYGENDME NAS.CANULA (08:42)
--- NOTE | 2017-06-27 08:44 | HHI.FF ---
Face to Face Verification Diagnosis: (1) Hypoxemia (2) Emphysema of lung (3) Prostate cancer Home Health Nursing Order: Medical education Signs/symptoms of disease process Oxygen administration education Wound care and dressing changes I have seen patient Rusty Mai on 06/27/17. My clinical findings support the need for the requested home health care services because: Ltd mobility - disease progression Patient has SOB Limited ability to care for self I certify that my clinical findings support that this patient is homebound because: Post-op weakness Hx COPD- exertion dyspnea/weakness Zak Montalvo MD Jun 27, 2017 08:44
--- NOTE | 2017-06-27 08:48 | HHI.DS ---
Discharge Summary Admission Date Jun 20, 2017 at 05:58 Discharge Date: Jun 27, 2017 Admitting Diagnosis (1) Prostate cancer ICD Code: C61 - Malignant neoplasm of prostate (2) Hypoxemia ICD Code: R09.02 - Hypoxemia (3) Emphysema of lung ICD Code: J43.9 - Emphysema, unspecified Procedures Prostatectomy Brief History - From Admission 62M with prostate cancer who under went prostatectomy and had a ANA MARIA drain and coleman catheter placed for post op recovery. CBC/BMP: 06/25/17 0557 06/25/17 0557 Significant Findings Laboratory Tests Test 06/24/17 11:50 06/25/17 05:57 06/25/17 11:15 06/26/17 12:50 Red Blood Count 2.76 MIL/MM3 (4.50-5.90) Hemoglobin 9.1 GM/DL (13.0-17.0) Hematocrit 26.1 % (39.0-51.0) Calcium Level 8.0 MG/DL (8.5-10.1) D-Dimer Quantitative (PE/DVT) 4.70 MG/L FEU (0.00-0.50) PE at Discharge GENERAL: Well-nourished, well-developed patient. SKIN: Warm and dry. HEAD: Normocephalic. EYES: No scleral icterus. No injection or drainage. NECK: Supple, trachea midline. No JVD or lymphadenopathy. CARDIOVASCULAR: Regular rate and rhythm without murmurs, gallops, or rubs. RESPIRATORY: Breath sounds equal bilaterally. No accessory muscle use. GASTROINTESTINAL: Abdomen soft, non-tender, nondistended EXTREMITIES: No cyanosis, or edema. NEUROLOGICAL: Awake, alert, and oriented x 3. Non-focal. Hospital Course Patient did well post op and was cleared for discharge by urology, with follow up arranged. On day of discharge, however, he failed an oxygen walk test, with saturations as low as 76%. A work up was initiated after D-Dimer came back positive. His pulmonary angio CT was negative for pulmonary embolism. Lower Extremity ultrasound showed no DVT. Chest can did reveal advanced emphysema, which is the explanation for his hypoxemia. He will be sent home with oxygen and home healthcare nursing to educate on oxygen use as well as monitor ANA MARIA drain. Pt Condition on Discharge: Good Discharge Disposition: Disch w/ Home Health Serv Discharge Time: <= 30 minutes Discharge Instructions DIET: Follow Instructions for: As Tolerated, No Restrictions Activities you can perform: Shower Only-No Bath Activities to Avoid: Lifting/Bending Zak Montalvo MD Jun 27, 2017 08:48
[2017-06-27] MEDS: DOXAZOSIN MESYLATE 1 MG TAB PO SCH (09:26)
[2017-06-27] MEDS: BUDESONIDE-FORMOTEROL 160/4.5 MCG INHALER INH SCH (09:26)
[2017-06-27] MEDS: PANTOPRAZOLE SOD 40 MG DELAYED RELEASE TAB PO SCH (09:26)
[2017-06-27 09:51] VITALS: O2SAT 94
[2017-06-27 12:00] VITALS: BP 116/67; PULSE 85; RESP 18; TEMP 97.9; O2SAT 95
== END 2017-06-27 16:26 | disposition home health service (06) | DRG 707 ==
LOC: HSDI 05:58 → N03A 16:24 → N07B 06-24 16:38
PROVIDERS: ADMIT Urology; ATTEND Urology
PROC: 5A1935Z Respiratory Ventilation, Less than 24 Consecutive Hours (ICD-10-PCS; 2017-06-20)
PROC: 07BC0ZX Excision of Pelvis Lymphatic, Open Approach, Diagnostic (ICD-10-PCS; 2017-06-20)
PROC: 0T9B70Z Drainage of Bladder with Drainage Device, Via Natural or Artificial Opening (ICD-10-PCS; 2017-06-20)
PROC: 30233K1 Transfusion of Nonautologous Frozen Plasma into Peripheral Vein, Percutaneous Approach (ICD-10-PCS; 2017-06-20)
PROC: 30233N1 Transfusion of Nonautologous Red Blood Cells into Peripheral Vein, Percutaneous Approach (ICD-10-PCS; 2017-06-20)
PROC: 6A550Z2 Pheresis of Platelets, Single (ICD-10-PCS; 2017-06-20)
PROC: 0T9B70Z Drainage of Bladder with Drainage Device, Via Natural or Artificial Opening (ICD-10-PCS; 2017-06-20)
PROC: 0VT00ZZ Resection of Prostate, Open Approach (ICD-10-PCS; principal; 2017-06-20 08:11)
DX: C61 Malignant neoplasm of prostate (principal); J95.821 Acute postprocedural respiratory failure; R57.8 Other shock; J43.9 Emphysema, unspecified; D68.8 Other specified coagulation defects; E88.09 Other disorders of plasma-protein metabolism, not elsewhere classified; D69.6 Thrombocytopenia, unspecified; D62 Acute posthemorrhagic anemia; E83.51 Hypocalcemia; E87.6 Hypokalemia; R06.89 Other abnormalities of breathing; Z87.891 Personal history of nicotine dependence; K59.00 Constipation, unspecified; Z87.442 Personal history of urinary calculi
CPT/HCPCS: 31500; 36430; 71045; 71046; 71275; 80048; 80053; 82570; 82805; 82948; 83036; 83605; 83735; 84100; 84155; 85014; 85018; 85025; 85027; 85379; 85384; 85610; 85730; 86850; 86900; 86901; 86920; 86927; 86965; 87641; 88305; 88307; 88309; 88333; 88334; 93005; 93970; 94002; 94003; 94150; 94618; 94640; 94664; 94667; 94668; J0690; J1815; J1940; J2270; J2370; J3010; J7030; J7060; J7120; P9016; P9017; P9035; P9047; Q9967

== ENCOUNTER 2017-07-02 15:38 | Emergency (ER) | payer OTHER ==
[~2017-07-02] VITALS: Ht 170.2 cm; Wt 68.0 kg
[~2017-07-02 15:38] MED LIST changes: +BACT800T5 PO; -CIAL5TAB PO; +COLA100C5 PO; -IBUP200C PO; +OXYGENDME NAS.CANULA; +PERC7.5T13 PO
[2017-07-02 15:42] VITALS: BP 149/67; PULSE 95; RESP 15; TEMP 98.5; O2SAT 95
--- NOTE | 2017-07-02 16:55 | PD ---
HPI Chief Complaint: Wound/Suture/Staple Re-Check Time Seen by Provider: 16:15 Travel History International Travel<30 days: No Contact w/Intl Traveler<30days: No Traveled to known affect area: No History of Present Illness HPI 62-year-old male that presents to the ED for evaluation of wound to the abdomen. Patient had surgery on June [address] Calvillo for radical retropubic prostatectomy with bilateral lymph node dissection. Per patient his been doing well and he had the lauri removed this week by Dr. Calvillo with no issues. His been taking his pain medications and antibiotics that he was prescribed by the physician. He states that today about an hour before coming he was trying to stand up from a sitting position and he felt that part of his cut open now. Per patient he had some blood in it but otherwise unremarkable. He denies any urinary or bowel movement issues. No increase in pain. No fevers chills or sweats. No purulence. Per patient he did not try to contact his doctor came here instead as he knew his doctor was told to come here. Denies any other medical issues. States compliant with his medications. Pain per patient is 6 out of 10. PFSH Past Medical History Autoimmune Disease: No Anxiety: No Depression: No Cancer: No Cardiovascular Problems: No Chemotherapy: No Diabetes: No Endocrine: No GERD: Yes Genitourinary: No Hepatitis: No (PROSTATE) Hiatal Hernia: No Immune Disorder: No Musculoskeletal: No Neurologic: No Psychiatric: No Reproductive: No Respiratory: No Radiation Therapy: No Sickle Cell Disease: No Thyroid Disease: No Ulcer: No Past Surgical History Abdominal Surgery: No AICD: No Arteriovenous Shunt: No Cardiac Surgery: No Ear Surgery: No Endocrine Surgery: No Eye Surgery: No Genitourinary Surgery: No Gynecologic Surgery: No Insulin Pump: No Joint Replacement: No Oral Surgery: No Pacemaker: No Thoracic Surgery: No Social History Alcohol Use: No Tobacco Use: No Substance Use: No Allergies-Medications (Allergen,Severity, Reaction): Coded Allergies: No Known Allergies (Unverified Adverse Reaction, Unknown, 06/20/17) Reported Meds & Prescriptions Reported Meds & Active Scripts Active Doxazosin (Doxazosin Mesylate) 2 Mg Tab 4 Mg PO DAILY Reported Percocet (Oxycodone-Acetaminophen) 7.5-325 mg Tab 1 Tab PO Q6H PRN Bactrim DS (Sulfamethoxazole-Trimethoprim) 800-160 Mg Tab 1 Tab PO BID Review of Systems Except as stated in HPI: all other systems reviewed are Neg Physical Exam Narrative GENERAL: SKIN: Warm and dry. Patient has some wound dehiscence to the mid lower pelvic area. About 2 cm. Otherwise unremarkable. Minimal bleeding noted. About half centimeter deep with only muscle and fatty tissue showing. HEAD: Atraumatic. Normocephalic. EYES: Pupils equal and round 4 mm reactive to light and accommodation. No scleral icterus. No injection or drainage. ENT: No nasal bleeding or discharge. Mucous membranes pink and moist. Tongue is midline. No uvula deviation. NECK: Trachea midline. No JVD. CARDIOVASCULAR: Regular rate and rhythm. No murmurs, S3, S4. RESPIRATORY: No accessory muscle use. Clear to auscultation. Breath sounds equal bilaterally. GASTROINTESTINAL: Abdomen soft, non-tender, nondistended. Hepatic and splenic margins not palpable. MUSCULOSKELETAL: Extremities without clubbing, cyanosis, or edema. No obvious deformities. Full range of motion of the upper and lower extremities bilaterally. 2+ pulses bilaterally. NEUROLOGICAL: Awake and alert. No obvious cranial nerve deficits. Motor grossly within normal limits. Five out of 5 muscle strength in the arms and legs. Normal speech. PSYCHIATRIC: Appropriate mood and affect; insight and judgment normal. Data Data Last Documented VS Vital Signs Date Time Temp Pulse Resp B/P (MAP) Pulse Ox O2 Delivery O2 Flow Rate FiO2 07/02/17 15:42 98.5 95 15 149/67 (94) 95 Orders Orders Ed Discharge Order (07/02/17 16:51) MDM Medical Decision Making Medical Screen Exam Complete: Yes Emergency Medical Condition: Yes Medical Record Reviewed: Yes Differential Diagnosis wound dehiscence vs infection vs wound Narrative Course 62-year-old male that presents to the ED for evaluation of possible wound dehiscence. Patient was properly examined and was found to have signs and symptoms consistent appears to be wound dehiscence. No sign of acute medical distress. Case was discussed with Dr. Guillaume over the phone who is naval gunfire liaison officer for Dr Calvillo and was part of the surgery and recommend wet to dry dressing and follow up tomorrow at Dr Calvillo office. Patient was told this and agrees with plan. Told to continue taking antibiotic given to him by his doctor. See ED worsening symptoms. Follow with PCP. Diagnosis Primary Impression: Wound dehiscence, surgical Qualified Codes: T81.31XA - Disruption of external operation (surgical) wound , not elsewhere classified, initial encounter Patient Instructions: General Instructions Additional Instructions: Follow up with PCP. See ED if worsening symptoms. Med/Other Pt SpecificInfo: Wound Care Disposition: 01 DISCHARGE HOME Condition: Stable Hemal Perales Jul 02, 2017 16:55
== END 2017-07-02 17:24 | disposition home or self-care (01) ==
LOC: NEPE 15:38
DX: T81.31XA Disruption of external operation (surgical) wound, not elsewhere classified, initial encounter (principal)
CPT/HCPCS: 99281

== ENCOUNTER → 2017-07-04 | Day surgery (SDC) | payer OTHER ==
[~2017-07-04] VITALS: Ht 170.2 cm; Wt 68.0 kg
[~2017-07-04] MED LIST changes: +ACETAMINOPHEN 325 MG TAB PO PRN; +CHLORHEXIDINE GLUCONATE 2 % 1 PACK (2 CLOTHS) TOPICAL PRN; +DO NOT ADM ANY ANTICOAGULANT DRUGS PRN; +LACTATED RINGER'S 1000 ML IV PRN; +LIDOCAINE HCL 1% PF 5 ML SYRINGE OTHER ONE; +METOPROLOL TARTRATE 25 MG TAB PO PRN; +ONDANSETRON HCL 4 MG/2 ML VIAL IV PRN; +POVIDONE IODINE 5% (ANTISEPSIS KIT) 4 APPLICATIONS EACH NARE PRN; +PROPOFOL 200 MG/20 ML AMP IV ONE; +SODIUM CHLORID 0.9% 500 ML IV PRN; +ceFAZolin 1,000 MG/NS 100 ML IV SCH
--- NOTE | 2017-07-04 08:29 | PD.OP ---
Operative Report Date of Surgery: Jul 04, 2017 Preoperative Diagnosis: Prostate cancer status post radical retropubic prostatectomy Postoperative Diagnosis: Same Procedure: Cystogram with removal of Banerjee catheter Anesthesia: MAC Surgeon: Mina Calvillo Certified Personal Finance Counselor(s): None Resident Surgeon: None Operation and Findings: 62-year-old male with history of prostate cancer status post radical retropubic prostatectomy 2 weeks ago. She presented for cystogram with removal of Banerjee today. Risk and benefits were discussed and he is willing to proceed. Patient is brought to the operating room identified by myself as Rusty Mai. He was placed in dorsal lithotomy position, prepped and draped in usual sterile fashion, received preprocedure antibiotics, and MAC anesthesia was administered using a piston syringe, contrast was injected through the Banerjee catheter. Approximately 400 cc was injected into the Banerjee catheter. There is no evidence of any extravasation around the bladder neck anastomosis. The Banerjee was then removed. He tolerated the procedure well. He was awoken and transferred to recovery room in stable condition. Mina Calvillo DO Jul 04, 2017 08:29
[2017-07-04 09:25] VITALS: BP 116/70; PULSE 72; RESP 16; TEMP 98.3; O2SAT 98
== END | disposition home or self-care (01) ==
LOC: HSDC 05:55
PROVIDERS: ATTEND Urology
DX: C61 Malignant neoplasm of prostate (principal); Z98.890 Other specified postprocedural states
CPT/HCPCS: 00910; 51600; 74430; J0690; J7120

== ENCOUNTER → 2017-09-15 | Day surgery (SDC) | payer OTHER ==
[~2017-09-15] VITALS: Ht 170.2 cm; Wt 67.1 kg
[~2017-09-15] MED LIST changes: -ACETAMINOPHEN 325 MG TAB PO PRN; +ACETAMINOPHEN/HYDROcodone 325 MG/5 MG TAB PO PRN; -BACT800T5 PO; +BELLADONNA ALKALOIDS/OPIUM 60 MG SUPP RECTAL ONE; +BELLADONNA ALKALOIDS/OPIUM 60 MG SUPP RECTAL PRN; -COLA100C5 PO; -DO NOT ADM ANY ANTICOAGULANT DRUGS PRN; -DOXA1TAB35 PO; +LACTATED RINGER'S 1000 ML INJ 1,000 ML IV ONE; +LIDOCAINE HCL 1% 50 ML VIAL ONE; +MORPHINE SULFATE 4 MG/ML INJ ONE; +ONABOTULINUMTOXINA INJ 100 UNITS/VIAL ONE; -OXYGENDME NAS.CANULA; -PERC7.5T13 PO; +SODIUM CHLORIDE 0.9% 20 ML VIAL ONE
[2017-09-15 07:11] LABS: BASOPHIL # 0.1 TH/MM3 (0-0.2); BASOPHIL % 0.9 % (0.0-2.0); EOSINOPHIL # 0.3 TH/MM3 (0-0.4); EOSINOPHIL % 4.2 % (0.0-4.0); HEMATOCRIT 40.3 % (39.0-51.0); HEMOGLOBIN 13.7 GM/DL (13.0-17.0); LYMPH % 21.5 % (9.0-44.0); LYMPHOCYTE # 1.5 TH/MM3 (1.0-4.8); MEAN CELL VOLUME 87.9 FL (80.0-100.0); MEAN CORPUSCULAR HGB CONC 34.1 % (32.0-36.0); MEAN PLATELET VOLUME 8.3 FL (7.0-11.0); MONO % 16.5 % (0.0-8.0); MONOCYTE # 1.2 TH/MM3 (0-0.9); NEUT % 56.9 % (16.0-70.0); PLATELET COUNT 333 TH/MM3 (150-450); RED BLOOD COUNT 4.58 MIL/MM3 (4.50-5.90); RED CELL DISTRIBUTION WIDTH 16.5 % (11.6-17.2)
--- NOTE | 2017-09-15 08:33 | PD.OP ---
Operative Report Date of Surgery: September 15, 2017 Preoperative Diagnosis: Bladder neck contracture Postoperative Diagnosis: Same Procedure: Cystoscopy with urethral dilatation with Banerjee placement over a wire Anesthesia: General LMA Surgeon: Mina Calvillo Employment Training Specialist(s): None Resident Surgeon: None Operation and Findings: 62-year-old male with history of prostate cancer who underwent a radical retropubic prostatectomy who has findings of a bladder neck contracture. Patient has noted a weak stream with difficulty urinating and incomplete emptying. The plan was for patient to bring the operating room to undergo cystoscopy with urethral dilatation and Banerjee placement. Risk and benefits were discussed preoperatively and the patient was willing to proceed. The patient was brought to the operating room and identified by myself as Rusty Mai. He was placed in the dorsal lithotomy position, prepped and draped in usual fashion, received preprocedure antibiotics and general LMA anesthesia was administered. 22 Polish cystoscope was inserted into the urethra and at the bladder neck there was a small opening noted. A 0.35 Arriaga wire was then passed in through the opening into the bladder. Microvasive ureteral dilators were then used starting with a 6 Polish and going up to a 16 Polish size. The 19 Polish cystoscope was then inserted through the bladder neck region and into the bladder. Haque cystoscopy did not reveal any abnormalities. The wire was in the bladder. An 18 Polish [place] tip catheter was then passed over the wire into the bladder without difficulty with 15 cc placed into the balloon. The bladder was emptied and he was awoken and transferred recovery in stable condition. He will follow-up this Monday to undergo a voiding trial in the office. Mina Calvillo DO September 15, 2017 08:33
[2017-09-15 09:50] VITALS: BP 140/83; PULSE 66; RESP 20; TEMP 97.6; O2SAT 94
== END | disposition home or self-care (01) ==
LOC: HSDC 05:34
PROVIDERS: ATTEND Urology
DX: N32.0 Bladder-neck obstruction (principal); Z85.46 Personal history of malignant neoplasm of prostate
CPT/HCPCS: 00910; 52281; 85025; J0690; J2270; J3010; J7120